=== PATIENT | female | born 1930 | race Caucasian/White ===

== ENCOUNTER 2016-10-20 09:42 | Outpatient (CLI) | payer MEDICARE, OTHER ==
[2016-10-20 10:21] LABS: ALT (SGPT) 23 U/L (0-55); AST (SGOT) 28 U/L (5-34); Albumin 4.1 g/dL (3.4-4.8); Alkaline Phosphatase 58 U/L (40-150); Anion Gap 19 mmol/L (10-20); BUN (Urea Nitrogen) 42 mg/dL (9.8-20.1); Bilirubin, Total 0.8 mg/dL (0.2-1.2); Calc. Creatinine Clearance 0 mL/min (70-130); Calcium 8.8 mg/dL (7.8-10.44); Carbon Dioxide 20 mmol/L (23-31); Cardiac Risk 2.3 (Less than 4.5); Chloride 108 mmol/L (98-107); Cholesterol 108 mg/dL (< 200 Desired); Estimated GFR-MDRD 19; Globulin 2.9 g/dL (2.4-3.5); Glucose 105 mg/dL (83-110); HDL Cholesterol 47 mg/dL (>60 Neg Risk); LDL Cholesterol, Calculated 48 mg/dL; Sodium 143 mmol/L (136-145); Triglycerides 65 mg/dL (Less than 150)
== END 2016-10-20 09:43 | disposition home or self-care (01) ==
LOC: MADLAB 09:42
PROVIDERS: ATTEND Internal Medicine Cardiovascular Disease
DX: E78.00 Pure hypercholesterolemia, unspecified (principal)
CPT/HCPCS: 36415; 80053; 80061

== ENCOUNTER 2016-12-16 10:40 | Outpatient (CLI) | payer MEDICARE, OTHER ==
[2016-12-16 11:09] LABS: #Basophils 0.1 thou/uL (0.0-0.2); #Eosinphils 0.2 thou/uL (0.0-0.7); #Monocytes 0.9 thou/uL (0.11-0.59); #Neutrophils 3.5 thou/uL (1.40-6.50); %Basophils 1.2 % (0.0-1.0); %Eosinophils 3.2 % (0.0-10.0); %Lymphocytes 29.7 % (21.0-51.0); %Monocytes 13.1 % (0.0-10.0); %Neutrophils 52.8 % (42.0-75.0); Mean Corpuscular HGB CONC 33.5 g/dL (32.0-36.0); Mean Corpuscular Hemoglobin 31.9 pg (27.0-31.0); Mean Corpuscular Volume 95.3 fl (81.0-99.0); Mean Platelet Volume 11.1 fL (7.4-10.4); Platelet Count 142 thou/uL (130-400); RBC Distribution Width 12.6 % (11.5-14.5); Red Blood Cell (RBC) Count 3.15 mill/uL (4.20-5.40); White Blood Cell (WBC) Count 6.6 thou/uL (4.8-10.8)
[2016-12-16 11:53] LABS: ALT (SGPT) 17 U/L (0-55); AST (SGOT) 23 U/L (5-34); Alkaline Phosphatase 56 U/L (40-150); Anion Gap 16 mmol/L (10-20); BUN (Urea Nitrogen) 41 mg/dL (9.8-20.1); Bilirubin, Direct 0.4 mg/dL (0.1-0.3); Bilirubin, Total 0.9 mg/dL (0.2-1.2); Calc. Creatinine Clearance 0 mL/min (70-130); Calcium 9.1 mg/dL (7.8-10.44); Carbon Dioxide 23 mmol/L (23-31); Cardiac Risk 2.6 (Less than 4.5); Chloride 107 mmol/L (98-107); Cholesterol 103 mg/dL (< 200 Desired); Estimated GFR-MDRD 20; Glucose 98 mg/dL (83-110); HDL Cholesterol 40 mg/dL (>60 Neg Risk); LDL Cholesterol, Calculated 47 mg/dL; Potassium 3.9 mmol/L (3.5-5.1); Protein, Total 6.9 g/dL (5.8-8.1); Sodium 142 mmol/L (136-145); Triglycerides 81 mg/dL (Less than 150)
== END 2016-12-16 10:41 | disposition home or self-care (01) ==
LOC: MADLAB 10:40
PROVIDERS: ATTEND Family Medicine
DX: N18.4 Chronic kidney disease, stage 4 (severe) (principal); D63.1 Anemia in chronic kidney disease
CPT/HCPCS: 36415; 80048; 80061; 80076; 85025

== ENCOUNTER 2017-01-06 09:25 | Outpatient (CLI) | payer MEDICARE, OTHER ==
[2017-01-06 10:14] LABS: Anion Gap 17 mmol/L (10-20); BUN (Urea Nitrogen) 42 mg/dL (9.8-20.1); Calc. Creatinine Clearance 0 mL/min (70-130); Calcium 9.1 mg/dL (7.8-10.44); Carbon Dioxide 21 mmol/L (23-31); Chloride 107 mmol/L (98-107); Estimated GFR-MDRD 18; Glucose 106 mg/dL (83-110); Potassium 4.2 mmol/L (3.5-5.1); Sodium 141 mmol/L (136-145)
== END 2017-01-06 09:26 | disposition home or self-care (01) ==
LOC: MADLAB 09:25
PROVIDERS: ATTEND Internal Medicine Nephrology
DX: N18.4 Chronic kidney disease, stage 4 (severe) (principal)
CPT/HCPCS: 36415; 80048

== ENCOUNTER 2017-01-14 10:17 | Outpatient (CLI) | payer MEDICARE, OTHER ==
[2017-01-14 10:51] LABS: Anion Gap 17 mmol/L (10-20); BUN (Urea Nitrogen) 50 mg/dL (9.8-20.1); Calc. Creatinine Clearance 0 mL/min (70-130); Calcium 8.8 mg/dL (7.8-10.44); Carbon Dioxide 19 mmol/L (23-31); Chloride 111 mmol/L (98-107); Estimated GFR-MDRD 19; Glucose 99 mg/dL (83-110); Potassium 4.4 mmol/L (3.5-5.1); Sodium 143 mmol/L (136-145)
== END 2017-01-14 10:18 | disposition home or self-care (01) ==
LOC: MADLAB 10:17
PROVIDERS: ATTEND Internal Medicine Nephrology
DX: N18.4 Chronic kidney disease, stage 4 (severe) (principal)
CPT/HCPCS: 36415; 80048

== ENCOUNTER 2017-03-05 13:02 | Outpatient (CLI) | payer MEDICARE, OTHER ==
[2017-03-05 13:55] LABS: Anion Gap 17 mmol/L (10-20); BUN (Urea Nitrogen) 48 mg/dL (9.8-20.1); Calc. Creatinine Clearance 0 mL/min (70-130); Calcium 9.2 mg/dL (7.8-10.44); Carbon Dioxide 21 mmol/L (23-31); Chloride 105 mmol/L (98-107); Estimated GFR-MDRD 18; Glucose 110 mg/dL (83-110); Potassium 4.2 mmol/L (3.5-5.1); Sodium 139 mmol/L (136-145)
== END 2017-03-05 13:03 | disposition home or self-care (01) ==
LOC: MADLAB 13:02
PROVIDERS: ATTEND Internal Medicine Nephrology
DX: N18.3 Chronic kidney disease, stage 3 (moderate) (principal)
CPT/HCPCS: 36415; 80048

== ENCOUNTER 2017-03-19 10:17 | Outpatient (CLI) | payer MEDICARE, OTHER ==
[2017-03-19 10:56] LABS: #Eosinphils 0.2 thou/uL (0.0-0.7); #Lymphocytes 1.8 thou/uL (1.20-3.40); #Monocytes 0.8 thou/uL (0.11-0.59); #Neutrophils 3.1 thou/uL (1.40-6.50); %Basophils 0.8 % (0.0-1.0); %Eosinophils 2.6 % (0.0-10.0); %Lymphocytes 30.2 % (21.0-51.0); %Monocytes 13.3 % (0.0-10.0); %Neutrophils 53.1 % (42.0-75.0); Hemoglobin 10.1 g/dL (12.0-16.0); Mean Corpuscular HGB CONC 33.6 g/dL (32.0-36.0); Mean Corpuscular Hemoglobin 31.9 pg (27.0-31.0); Mean Corpuscular Volume 94.8 fl (81.0-99.0); Mean Platelet Volume 11.8 fL (7.4-10.4); Platelet Count 145 thou/uL (130-400); Red Blood Cell (RBC) Count 3.18 mill/uL (4.20-5.40); White Blood Cell (WBC) Count 5.9 thou/uL (4.8-10.8)
[2017-03-19 11:35] LABS: ALT (SGPT) 17 U/L (8-55); AST (SGOT) 21 U/L (5-34); Albumin 3.8 g/dL (3.4-4.8); Alkaline Phosphatase 58 U/L (40-150); Anion Gap 15 mmol/L (10-20); BUN (Urea Nitrogen) 42 mg/dL (9.8-20.1); Bilirubin, Direct 0.4 mg/dL (0.1-0.3); Calc. Creatinine Clearance 0 mL/min (70-130); Calcium 8.5 mg/dL (7.8-10.44); Carbon Dioxide 21 mmol/L (23-31); Cardiac Risk 2.4 (Less than 4.5); Chloride 109 mmol/L (98-107); Cholesterol 101 mg/dl (< 200 Desired); Estimated GFR-MDRD 20; Glucose 99 mg/dL (83-110); HDL Cholesterol 42 mg/dL (>60 Neg Risk); LDL Cholesterol, Calculated 45 mg/dL; Potassium 4.2 mmol/L (3.5-5.1); Protein, Total 7.2 g/dL (6.0-8.3); Sodium 141 mmol/L (136-145); Triglycerides 71 mg/dL (Less than 150)
== END 2017-03-19 10:18 | disposition home or self-care (01) ==
LOC: MADLABBHPM 10:17
PROVIDERS: ATTEND Family Medicine
DX: N18.4 Chronic kidney disease, stage 4 (severe) (principal); I43 Cardiomyopathy in diseases classified elsewhere
CPT/HCPCS: 36415; 80048; 80061; 80076; 85025

== ENCOUNTER 2017-04-21 10:02 | Outpatient (CLI) | payer MEDICARE, OTHER ==
[2017-04-21 10:38] LABS: ALT (SGPT) 20 U/L (8-55); AST (SGOT) 21 U/L (5-34); Albumin 3.7 g/dL (3.4-4.8); Alkaline Phosphatase 60 U/L (40-150); Anion Gap 16 mmol/L (10-20); BUN (Urea Nitrogen) 41 mg/dL (9.8-20.1); Bilirubin, Total 1.1 mg/dL (0.2-1.2); Calc. Creatinine Clearance 0 mL/min (70-130); Calcium 8.6 mg/dL (7.8-10.44); Carbon Dioxide 22 mmol/L (23-31); Cardiac Risk 2.5 (Less than 4.5); Chloride 106 mmol/L (98-107); Cholesterol 104 mg/dl (< 200 Desired); Estimated GFR-MDRD 18; Globulin 3.3 g/dL (2.4-3.5); Glucose 127 mg/dL (83-110); HDL Cholesterol 42 mg/dL (>60 Neg Risk); LDL Cholesterol, Calculated 48 mg/dL; Potassium 3.8 mmol/L (3.5-5.1); Sodium 140 mmol/L (136-145); Triglycerides 68 mg/dL (Less than 150)
== END 2017-04-21 10:03 | disposition home or self-care (01) ==
LOC: MADLAB 10:02
PROVIDERS: ATTEND Internal Medicine Cardiovascular Disease
DX: E78.00 Pure hypercholesterolemia, unspecified (principal)
CPT/HCPCS: 36415; 80053; 80061

== ENCOUNTER 2017-06-22 11:05 | Outpatient (CLI) | payer MEDICARE, OTHER, BC ==
[2017-06-22 11:50] LABS: #Basophils 0.1 thou/uL (0.0-0.2); #Eosinphils 0.1 thou/uL (0.0-0.7); #Lymphocytes 1.9 thou/uL (1.20-3.40); #Monocytes 0.8 thou/uL (0.11-0.59); #Neutrophils 4.2 thou/uL (1.40-6.50); %Basophils 1.1 % (0.0-1.0); %Eosinophils 1.8 % (0.0-10.0); %Lymphocytes 26.5 % (21.0-51.0); %Monocytes 11.7 % (0.0-10.0); %Neutrophils 58.8 % (42.0-75.0); Hemoglobin 10.8 g/dL (12.0-16.0); Mean Corpuscular HGB CONC 32.7 g/dL (32.0-36.0); Mean Corpuscular Volume 94.9 fl (81.0-99.0); Mean Platelet Volume 11.5 fL (7.4-10.4); Platelet Count 144 thou/uL (130-400); Red Blood Cell (RBC) Count 3.47 mill/uL (4.20-5.40); White Blood Cell (WBC) Count 7.1 thou/uL (4.8-10.8)
[2017-06-22 12:33] LABS: ALT (SGPT) 18 U/L (8-55); AST (SGOT) 22 U/L (5-34); Alkaline Phosphatase 72 U/L (40-150); Anion Gap 15 mmol/L (10-20); BUN (Urea Nitrogen) 37 mg/dL (9.8-20.1); Bilirubin, Direct 0.5 mg/dL (0.1-0.3); Bilirubin, Total 1.1 mg/dL (0.2-1.2); Calc. Creatinine Clearance 0 mL/min (70-130); Calcium 8.9 mg/dL (7.8-10.44); Carbon Dioxide 22 mmol/L (23-31); Cardiac Risk 2.5 (Less than 4.5); Chloride 109 mmol/L (98-107); Cholesterol 104 mg/dl (< 200 Desired); Estimated GFR-MDRD 19; Glucose 99 mg/dL (83-110); HDL Cholesterol 41 mg/dL (>60 Neg Risk); LDL Cholesterol, Calculated 49 mg/dL; Protein, Total 7.5 g/dL (6.0-8.3); Sodium 142 mmol/L (136-145); Triglycerides 70 mg/dL (Less than 150)
== END 2017-06-22 11:06 | disposition home or self-care (01) ==
LOC: MADLABBHPM 11:05
PROVIDERS: ATTEND Family Medicine
DX: N18.4 Chronic kidney disease, stage 4 (severe) (principal); D63.1 Anemia in chronic kidney disease
CPT/HCPCS: 36415; 80048; 80061; 80076; 85025

== ENCOUNTER 2017-12-08 19:31 | Emergency (ER) | payer MEDICARE, OTHER, BC ==
--- NOTE | 2017-12-08 21:13 | RAD ---
RIGHT KNEE FOUR VIEW 12/08/17 HISTORY: Pain after fall. COMPARISON: None. FINDINGS: Mild vascular calcifications. No significant joint effusion. Mild pretibial soft tissue edema. IMPRESSION: Soft tissue contusion. No acute fracture or malalignment. POS: [facility]
--- NOTE | 2017-12-08 21:15 | RAD ---
RIGHT ANKLE THREE VIEW 12/08/17 HISTORY: Fall, lateral malleolar pain. COMPARISON: None. FINDINGS: Mild vascular calcifications. Small plantar and dorsal calcaneal spurs. No displaced fracture or malalignment of the ankle. There appears to be an old injury of the lateral malleolus. IMPRESSION: Cortical irregularity fifth metatarsal neck may reflect fracture. POS: [facility]
--- NOTE | 2017-12-08 21:21 | RAD ---
RIGHT RIBS GREATER THAN OR EQUAL 2 VIEW WITH PA CHEST X-RAY 12/08/17 HISTORY: Pain after a fall. COMPARISON: None. FINDINGS: An AICD/pacer is present. The aorta is mildly tortuous. Linear atelectasis left lung base. No displaced rib fracture. IMPRESSION: No displaced rib fracture. POS: [facility]
--- NOTE | 2017-12-08 21:26 | RAD ---
RIGHT FOOT THREE VIEW 12/08/17 HISTORY: Fourth metatarsal pain. COMPARISON: None. FINDINGS: Moderate sized plantar and dorsal calcaneal spurs. There is a fifth metatarsal neck fracture. IMPRESSION: Fifth metatarsal neck fracture without significant displacement. POS: [facility]
== END 2017-12-08 21:45 | disposition home or self-care (01) ==
LOC: MADERS 19:31
DX: S92.354A Nondisplaced fracture of fifth metatarsal bone, right foot, initial encounter for closed fracture (principal); S20.211A Contusion of right front wall of thorax, initial encounter; S80.01XA Contusion of right knee, initial encounter; E78.5 Hyperlipidemia, unspecified; I10 Essential (primary) hypertension; Z87.891 Personal history of nicotine dependence; W18.30XA Fall on same level, unspecified, initial encounter

== ENCOUNTER 2018-04-08 09:23 | Outpatient (CLI) | payer MEDICARE, BC, OTHER ==
[2018-04-08 09:59] LABS: ALT (SGPT) 9 U/L (8-55); AST (SGOT) 17 U/L (5-34); Alkaline Phosphatase 72 U/L (40-150); Anion Gap 16 mmol/L (10-20); BUN (Urea Nitrogen) 48 mg/dL (9.8-20.1); Calc. Creatinine Clearance 0 mL/min (70-130); Calcium 8.6 mg/dL (7.8-10.44); Carbon Dioxide 18 mmol/L (23-31); Cardiac Risk 2.5 (Less than 4.5); Chloride 113 mmol/L (98-107); Cholesterol 114 mg/dl (< 200 Desired); Estimated GFR-MDRD 22; Globulin 3.2 g/dL (2.4-3.5); Glucose 101 mg/dL (83-110); HDL Cholesterol 46 mg/dL (>60 Neg Risk); LDL Cholesterol, Calculated 58 mg/dL; Potassium 4.2 mmol/L (3.5-5.1); Protein, Total 7.2 g/dL (6.0-8.3); Sodium 143 mmol/L (136-145); Triglycerides 50 mg/dL (Less than 150)
== END 2018-04-08 09:24 | disposition home or self-care (01) ==
LOC: MADLAB 09:23
PROVIDERS: ATTEND Internal Medicine Cardiovascular Disease
DX: E78.00 Pure hypercholesterolemia, unspecified (principal)
CPT/HCPCS: 36415; 80053; 80061

== ENCOUNTER 2018-06-20 15:58 | Inpatient (IN) | payer MEDICARE, BC, OTHER ==
[2018-06-20] MEDS ORDERED: Acetaminophen 325 MG TAB PO PRN (18:34)
[2018-06-20] MEDS: HYDROcodone/Acetaminophen 5/325 mg Tablet PO PRN (19:22)
[2018-06-20] MEDS: Cipro 250 MG TAB PO SCH (20:50)
[2018-06-20 22:32] LABS: Bilirubin Negative (Negative); Blood, Urine Trace (Negative); Glucose, Urine (Dipstick) Negative (Negative); Leukocyte Small (Negative); Nitrite Negative (Negative); Protein, Urine (Dipstick) 30 mg/dL (Neg-Trace); Urobilinogen 0.2 mg/dL (0.2-1.0); pH, Urine 5.5 (5.0-9.0)
[2018-06-20 22:35] LABS: Clarity Hazy (Clear)
[2018-06-20 22:41] LABS: Bacteria/HPF Rare-Few HPF (None Seen); Squamous Epithelial 0-3 HPF (0-3)
--- NOTE | 2018-06-21 00:16 | HP ---
DATE OF ADMISSION: Admitted to [facility] to extended care on the afternoon of 06/20/2018. CHIEF COMPLAINT: Weakness. HISTORY OF PRESENT ILLNESS: The patient is an 87-year-old white female who lives at home and with he r , has a caregiver who helps her with her ADLs. The patient has a history of hypertension an d coronary artery disease, for which she has had stents placed in the LAD in 12/29/2013. She was lef t with an ischemic cardiomyopathy with an ejection fraction of 25% to 30%. The patient also has a hi story of a previous fracture of the left hip, for which she underwent total left hip replacement and was seen in [place] where the fracture occurred while visiting. There has been loosening that has o ccurred, creating chronic pain. She underwent a preop evaluation by her clicker operator, Dr. Keven juan nd was found to have severe mid to distal anteroseptal and proximal to the distal septal ischemia on cardiac PET scan. She underwent a heart catheterization on 05/08/2018, and was found to have a 70% l esion between the two original stents that were placed in [place] 3 years ago. She had a bare metal stent placed in this area with excellent results. The bare metal was used that would allow her to s top the Plavix, so she can undergo her hip surgery. She was given okay to follow through with her santacruz rgery for the revision of the left hip on 06/16/2018. The patient was admitted for the failed hemiar throplasty with cement of the left hip and underwent removal of the hardware and conversion to a tota l hip arthroplasty. She had a postop anemia and required transfusion with 1 unit of blood. She also had urinary tract infection with Enterobacter cloacae sensitive to the ceftriaxone that she was plac ed on postop. She had difficulty with urinary retention and required placement of a Wisdom catheter t hat was difficult and required placement by the urologist. She has previously had trouble with urina ry retention in 05/2018 when she was admitted for heart catheterization and catheter was not able to be placed successfully after multiple attempts. Dr. Femi Styles, urologist placed this easily and the blood was felt to be from the multiple attempts that is cleared. The patient said that she was transferred to [facility] on the afternoon of 06/20/2018 due to her weakness and deconditioning following the left hip arthroplasty. The patient was seen soon after admission and said that she has been doing fine, just weak. She said that she has been up in a chair and has been able to get up and walk a little, but not today because she was just worn out from the urinary retention, multiple attempts to place the catheter last eveni ng eventually was successfully done. She said her pain is from the postop pain and has been managed with her hydrocodone/acetaminophen. Her pain is much different than the pain from the failed arthrop lasty is much more tolerable. The patient thinks she is doing very well. PAST HISTORY: Hospitalized at [facility] until 06/20/2018, for failed hemiarthroplasty, c emented type, requiring removal of hardware and conversion to a previous hip surgery to a total hip a rthroplasty by Dr. Kushal Funes. Hospital course complicated by blood loss anemia requiring transfus ion with 1 unit of blood at urinary tract infection from Enterobacter cloacae hospitalized in [facility] on 05/09/2018 for placement of a bare metal stent in the LAD between 2 previous stents that were placed three years previous with excellent results. Bare metal stent allowed her to stop the Plavix for her intended hip surgery. Her ejection fraction was 25% to 30% as results of ischemic cardiomyop athy. She has a history of ventricular tachycardia and has dual-chamber implantable cardioverter def ibrillator. She has hypertension and chronic kidney disease, hypercholesterolemia, mild mitral regur gitation, mild aortic insufficiency, and idiopathic urticaria. The patient had a myocardial infarcti on complicated by cardiac arrest from v-tach in 12/2013. She underwent a stent placement in the LAD x2 and also an ICD placement. She underwent a bare metal stent in the LAD restenosis between the pre vious stents on 05/09/2018. The patient has history of anemia of chronic illness, chronic kidney dis ease stage 4, followed by Dr. Murphy, glove maker, polyneuropathy, generalized osteoarthritis, morbid obesity, cancer of the left breast for which she has undergone left breast lumpectomy, sentinel node biopsy, well differentiated ductal carcinoma. She has had appendectomy, tonsillectomy, colonoscopy i n 2007 with removal of sessile polyp and she had been treated in the past for congestive heart failur e in 2013. 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 PRESENT MEDICINES: Aspirin 81 mg b.i.d., atorvastatin 80 mg daily, vitamin D3 of 500 units daily, ca lcium carbonate 600 mg daily, carvedilol 12.5 mg b.i.d., Zetia 10 mg b.i.d., Cipro 250 mg b.i.d., fur osemide 40 mg on Wednesday, Wednesday, , Wednesday, furosemide 20 mg on , isosorbide mononitrate 30 mg daily, CoQ10 of 400 mg daily, hydrocodone/acetaminophen 5/325 one or two every 4 hours as need ed for mild to moderate pain, ferrous gluconate 324 mg b.i.d. ALLERGIES: HYDRALAZINE causes headache. LISINOPRIL, decline in renal function. TOPROL-XL, syncope and bradycardia. FOSAMAX, hives. Historically, she had some trouble with hydrocodone causing urtica lena but has since been taking this without problems. REVIEW OF SYSTEMS: General: The patient has had no chills or fever. Head and Neck: No complaints. Pulmonary: No shortness of breath. Cardiovascular: No chest pain. Gastrointestinal: The patien t had a little nausea early this morning, but that has resolved and she has been eating her supper to day. Genitourinary: The patient has an indwelling Wisdom catheter due to urinary retention postop. Musculoskeletal. The patient has pain in her left hip from the surgery, the pain from the failed art hroplasty of the left hip is much better since the surgery on 06/16. HABITS: Alcohol none. Tobacco, the patient is a smoker, less than a pack a day. SOCIAL HISTORY: The patient is and lives with her . She has a lady that comes in and helps her some with her ADLs. She usually ambulates with the use of a walker. PHYSICAL EXAMINATION: GENERAL: Shows a very pleasant 87-year-old white female who is sitting up in bed, eating her supper. She looks very comfortable and in no distress. VITAL SIGNS: Her temperature is 97.9, pulse 68, respirations 22, O2 sat 97% on room air, blood press ure 104/60. Her weight is 166. HEAD: Normocephalic. EYES: Pupils were equal, round, and reactive. The patient had bilateral cataract surgery with intra ocular lens implants. EARS: TMs are clear. NOSE: Normal. MOUTH AND THROAT: Normal. NECK: Carotids were equal and strong. No bruits. Thyroid not enlarged. LUNGS: Clear. HEART: Regular rate. No murmurs. ABDOMEN: Soft, no organomegaly nor areas of tenderness. MUSCULOSKELETAL: Left hip, there was a long incision along the lateral side of the hip. There was n o overlying dressing. The wound was examined. The skin edges were well approximated with subcuticul ar stitches. There was no drainage nor surrounding redness. Distal lower extremities, no edema. NEUROLOGIC: The patient is alert and oriented x3, has excellent strength in the upper extremities, n ot moving the left leg as much due to the pain from the recent surgery. IMPRESSION: 1. Generalized weakness and deconditioning and gait abnormality. A. Secondary to a failed hemiarthroplasty of the left hip requiring removal of hardware and conversi on to a total hip arthroplasty on 06/16/2018. 2. 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 A. Status post removal of hardware and conversion to a total hip arthroplasty by Dr. Kushal Funes on 06/16/2018. 3. Urinary tract infection. A. Urine culture grew Enterobacter cloacae colony count greater than 100,000 in 06/16/2018. B. Treated initially with IV ceftriaxone, which the organism was sensitive to and then switched to o ral Cipro, which the organism is sensitive to. 4. Anemia of chronic illness. A. Exacerbated by blood loss from recent surgery, requiring transfusion with 1 unit of packed red bl ood cells. 5. Urinary retention. A. Required placement of Wisdom catheter on 06/19/2018. 6. History of inability to place Wisdom catheter on 05/07/2018, requiring urologist, Dr. Styles to p lace the catheter. Complicated by hematuria, which is resolved. 7. Coronary artery disease. A. History of myocardial infarction complicated by cardiac arrest from ventricular tachycardia and p ulmonary edema, requiring placement of stents in the left anterior descending and Implantable cardiov erter defibrillator placement. B. In-stent restenosis in the left anterior descending, required bare metal stent placement by Dr. Arnaldo Baca, clicker operator on 05/09/2018. 8. Ischemic cardiomyopathy. A. Echocardiogram shows ejection fraction of 25% to 30%. 9. History of ventricular tachycardia. A. Status post dual-chamber implantable cardioverter defibrillator in 2013. 10. Chronic kidney disease, stage 4. 11. Hypertension. 12. Cigarette abuse. 13. 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 A. Status post lumpectomy in 2006, no evidence of recurrence. 14. Generalized osteoarthritis. 15. Neuropathy of the lower extremities. PLAN: The patient has been admitted to the hospital for physical therapy in an effort to improve her strength, her endurance, her gait, and functional capability with the eventual plans to return to he r home. Once she is more mobile, we will try removing the Wisdom catheter. We will continue her pres ent medication. We will continue the Cipro for another [address] the patient on DVT pro phylaxis with Lovenox. CODE STATUS: FULL CODE.
[2018-06-21 05:29] LABS: #Basophils 0.1 thou/uL (0.0-0.2); #Eosinphils 0.4 thou/uL (0.0-0.7); #Lymphocytes 1.4 thou/uL (1.20-3.40); #Monocytes 0.7 thou/uL (0.11-0.59); #Neutrophils 3.8 thou/uL (1.40-6.50); %Basophils 1.2 % (0.0-1.0); %Eosinophils 6.7 % (0.0-10.0); %Lymphocytes 21.5 % (21.0-51.0); %Monocytes 11.2 % (0.0-10.0); %Neutrophils 59.5 % (42.0-75.0); Hemoglobin 8.2 g/dL (12.0-16.0); Mean Corpuscular HGB CONC 35.7 g/dL (32.0-36.0); Mean Corpuscular Volume 92.4 fL (78.0-98.0); Mean Platelet Volume 11.3 fL (7.4-10.4); Platelet Count 138 thou/uL (130-400); RBC Distribution Width 12.5 % (11.5-14.5); Red Blood Cell (RBC) Count 2.49 mill/uL (4.20-5.40); White Blood Cell (WBC) Count 6.4 thou/uL (4.8-10.8)
[2018-06-21 05:46] LABS: ALT (SGPT) 12 U/L (8-55); AST (SGOT) 41 U/L (5-34); Albumin 2.9 g/dL (3.4-4.8); Alkaline Phosphatase 52 U/L (40-150); Anion Gap 12 mmol/L (10-20); BUN (Urea Nitrogen) 34 mg/dL (9.8-20.1); Bilirubin, Total 0.6 mg/dL (0.2-1.2); Calc. Creatinine Clearance 21 mL/min (70-130); Calcium 8.8 mg/dL (7.8-10.44); Carbon Dioxide 25 mmol/L (23-31); Chloride 103 mmol/L (98-107); Estimated GFR-MDRD 21; Globulin 2.9 g/dL (2.4-3.5); Glucose 99 mg/dL (83-110); Potassium 3.8 mmol/L (3.5-5.1); Protein, Total 5.8 g/dL (6.0-8.3); Sodium 136 mmol/L (136-145)
[2018-06-21] MEDS: Ondansetron ODT 4 MG TAB PO PRN (06:07)
[2018-06-21] MEDS: Cipro 250 MG TAB PO SCH ×2 (07:49→20:18)
[2018-06-21] MEDS: Carvedilol 12.5 MG TAB PO SCH ×2 (07:49→16:41)
[2018-06-21] MEDS: Calcium Carbonate 500 MG TAB PO SCH (07:51)
[2018-06-21] MEDS: Polyethylene Glycol 3350 17 GM Packet PO SCH (07:52)
[2018-06-21] MEDS: Furosemide 40 MG TAB PO SCH (07:52)
[2018-06-21] MEDS: Enoxaparin Sodium 40 MG/0.4 ML SYRINGE SC SCH (07:52)
[2018-06-21] MEDS: Ubidecarenone 50 MG CAP PO SCH (07:53)
[2018-06-21] MEDS ORDERED: Atorvastatin Calcium 10 MG TAB PO SCH (09:00)
[2018-06-21] MEDS ORDERED: Ezetimibe 10 MG TAB PO SCH (09:00)
[2018-06-21] MEDS: HYDROcodone/Acetaminophen 5/325 mg Tablet PO PRN ×2 (13:20→21:11)
[2018-06-21] MEDS: Atorvastatin Calcium 10 MG TAB PO SCH (20:16)
[2018-06-21] MEDS: Ezetimibe 10 MG TAB PO SCH (20:17)
[2018-06-22] MEDS: Cipro 250 MG TAB PO SCH ×2 (05:05→20:23)
[2018-06-22] MEDS: HYDROcodone/Acetaminophen 5/325 mg Tablet PO PRN ×3 (05:07→20:24)
--- NOTE | 2018-06-22 08:34 | PRG ---
DATE OF SERVICE: 06/22/2018 SUBJECTIVE: The patient said she is doing a lot better today. Yesterday she sat up quite a bit and also walked quite a bit. She is feeling better. Her hip is feeling better. Still has pain, but sahu s not have the pain with walking that she had prior to her surgery. OBJECTIVE: The patient is alert, looks very comfortable, very talkative, and in no distress. Temp 9 7.4, pulse 68, respirations 18, O2 saturation 98% on room air, blood pressure 101/53. Lungs are jacki r. Heart, regular rate. Extremities; no edema. ASSESSMENT: 1. Generalized weakness and deconditioning and gait abnormality. A. Secondary to a failed hemiarthroplasty of the left hip requiring removal of hardware and conversi on to a total hip arthroplasty on 06/16/2018. B. Improved, sitting up in a chair and walking some as of 06/22/2018. 2. 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 A. Status post removal of hardware and conversion to a total hip arthroplasty by Dr. Kushal Funes on 06/16/2018. 3. Urinary tract infection. A. Urine culture grew Enterobacter cloacae colony count greater than 100,000 in 06/16/2018. B. Treated initially with IV ceftriaxone, which the organism was sensitive to and then switched to o ral Cipro, which the organism is sensitive to. C. Asymptomatic, completing a 7-day course of Cipro as of 06/22/2018. 4. Anemia of chronic illness. A. Exacerbated by blood loss from recent surgery, requiring transfusion with 1 unit of packed red bl ood cells. 5. Urinary retention. A. Required placement of Wisdom catheter on 06/19/2018. 6. History of inability to place Wisdom catheter on 05/07/2018, requiring urologist, Dr. Styles to p lace the catheter. Complicated by hematuria, which is resolved. 7. Coronary artery disease. A. History of myocardial infarction complicated by cardiac arrest from ventricular tachycardia and p ulmonary edema, requiring placement of stents in the left anterior descending and Implantable cardiov erter defibrillator placement. B. In-stent restenosis in the left anterior descending, required bare metal stent placement by Dr. Arnaldo Baca, school aide on 05/09/2018. 8. Ischemic cardiomyopathy. A. Echocardiogram shows ejection fraction of 25% to 30%. B. No evidence of acute congestive heart failure as of 06/22/2018. 9. History of ventricular tachycardia. A. Status post dual-chamber implantable cardioverter defibrillator in 2013. 10. Chronic kidney disease, stage 4. 11. Hypertension. 12. Cigarette abuse. 13. 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 A. Status post lumpectomy in 2006, no evidence of recurrence. 14. Generalized osteoarthritis. 15. Neuropathy of the lower extremities. PLAN: The patient is improving. She looks much better, she is having no nausea. If she continues t o do well, we will probably be able to remove her Wisdom catheter soon. Continue PT and OT.
[2018-06-22] MEDS: Enoxaparin Sodium 40 MG/0.4 ML SYRINGE SC SCH (08:36)
[2018-06-22] MEDS: Carvedilol 12.5 MG TAB PO SCH ×2 (08:36→17:35)
[2018-06-22] MEDS: Polyethylene Glycol 3350 17 GM Packet PO SCH (08:36)
--- NOTE | 2018-06-22 08:36 | PRG ---
DATE OF SERVICE: 06/21/2018 SUBJECTIVE: The patient said she is doing alright. She said her bowels moved several times last nig ht. She also was a little nauseated this morning, was given Zofran oral disintegrating tablet and th is worked real well. OBJECTIVE: The patient is lying in bed with the head elevated. She was alert, talkative, looks comf ortable and in no distress. Her vital signs show a temperature of 98.5, pulse 62, respirations 18, O 2 sat 96% on room air. Her blood pressure is 131/60. Lungs were clear. Heart, regular rate. Extre mities; no edema. Her labs shows an H&H of 8.2 and 23. White cell count 6400 with 60% segs, 22% lymphocytes, and a soto telet count of 138,000. Her sodium is 136, potassium 3.8, BUN 34, creatinine 2.2, GFR 21, which is s table. Her FBS is 99. Albumin is 2.9. ASSESSMENT: 1. Generalized weakness and deconditioning and gait abnormality. A. Secondary to a failed hemiarthroplasty of the left hip requiring removal of hardware and conversi on to a total hip arthroplasty on 06/16/2018. B. Physical therapy and OT will begin working with her today 06/21/2018. 2. 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 A. Status post removal of hardware and conversion to a total hip arthroplasty by Dr. Kushal Funes on 06/16/2018. 3. Urinary tract infection. A. Urine culture grew Enterobacter cloacae colony count greater than 100,000 in 06/16/2018. B. Treated initially with IV ceftriaxone, which the organism was sensitive to and then switched to o ral Cipro, which the organism is sensitive to. 4. Anemia of chronic illness. A. Exacerbated by blood loss from recent surgery, requiring transfusion with 1 unit of packed red bl ood cells. B. Hemoglobin 8.2 as of 06/21/2018. 5. Urinary retention. A. Required placement of Wisdom catheter on 06/19/2018. 6. History of inability to place Wisdom catheter on 05/07/2018, requiring urologist, Dr. Styles to p lace the catheter. Complicated by hematuria, which is resolved. 7. Coronary artery disease. A. History of myocardial infarction complicated by cardiac arrest from ventricular tachycardia and p ulmonary edema, requiring placement of stents in the left anterior descending and Implantable cardiov erter defibrillator placement. B. In-stent restenosis in the left anterior descending, required bare metal stent placement by Dr. Arnaldo Baca, home aide on 05/09/2018. 8. Ischemic cardiomyopathy. A. Echocardiogram shows ejection fraction of 25% to 30%. B. No evidence of acute congestive heart failure as of 06/21/2018. 9. History of ventricular tachycardia. A. Status post dual-chamber implantable cardioverter defibrillator in 2013. 10. Chronic kidney disease, stage 4. A. GFR stable at 21 as of 06/21/2018. 11. Hypertension. 12. Cigarette abuse. 13. 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 A. Status post lumpectomy in 2006, no evidence of recurrence. 14. Generalized osteoarthritis. 15. Neuropathy of the lower extremities. PLAN: Physical therapy will begin working with the patient today. Her MiraLax will be switched if n jeanie.
[2018-06-22] MEDS: Calcium Carbonate 500 MG TAB PO SCH (08:37)
[2018-06-22] MEDS: Ubidecarenone 50 MG CAP PO SCH (08:37)
[2018-06-22] MEDS: Furosemide 20 MG TAB PO SCH (08:37)
[2018-06-22] MEDS: Atorvastatin Calcium 10 MG TAB PO SCH (20:23)
[2018-06-22] MEDS: Ezetimibe 10 MG TAB PO SCH (20:24)
[2018-06-23] MEDS: Cipro 250 MG TAB PO SCH ×2 (05:21→19:59)
[2018-06-23] MEDS: HYDROcodone/Acetaminophen 5/325 mg Tablet PO PRN ×3 (05:21→19:57)
[2018-06-23] MEDS: Ubidecarenone 50 MG CAP PO SCH (08:21)
[2018-06-23] MEDS: Calcium Carbonate 500 MG TAB PO SCH (08:22)
[2018-06-23] MEDS: Furosemide 40 MG TAB PO SCH (08:23)
[2018-06-23] MEDS: Polyethylene Glycol 3350 17 GM Packet PO SCH (08:23)
[2018-06-23] MEDS: Carvedilol 12.5 MG TAB PO SCH ×2 (08:23→18:04)
[2018-06-23] MEDS: Enoxaparin Sodium 40 MG/0.4 ML SYRINGE SC SCH (08:23)
--- NOTE | 2018-06-23 08:29 | PRG ---
DATE OF SERVICE: 06/23/2018 SUBJECTIVE: The patient said she slept real good last night. She has walked a little further in the hallway with therapy. She said she is having a lot of soreness with movement of that left hip, but felt like this is just post-surgical changes. OBJECTIVE: The patient is alert, appears in no distress. Her vital signs show a temperature of 97.9 , pulse 66, respirations 18, O2 sat 95% on room air, blood pressure 162/79. Her weight is 170 up fro m an admission weight of 164. Her lungs were clear. Heart, regular rate. Extremities, no edema. ASSESSMENT: 1. Generalized weakness and deconditioning and gait abnormality. A. Secondary to a failed hemiarthroplasty of the left hip requiring removal of hardware and conversi on to a total hip arthroplasty on 06/16/2018. B. Improved. Tolerates sitting up in a chair without problem. Walking further with a rolling walker and assistance as of 06/23/2018. 2. 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 A. Status post removal of hardware and conversion to a total hip arthroplasty by Dr. Kushal Funes on 06/16/2018. 3. Urinary tract infection. A. Urine culture grew Enterobacter cloacae colony count greater than 100,000 in 06/16/2018. B. Treated initially with IV ceftriaxone, which the organism was sensitive to and then switched to o ral Cipro, which the organism is sensitive to. C. Asymptomatic, completing a 7-day course of Cipro as of 06/23/2018. 4. Anemia of chronic illness. A. Exacerbated by blood loss from recent surgery, requiring transfusion with 1 unit of packed red bl ood cells. 5. Urinary retention. A. Required placement of Wisdom catheter on 06/19/2018. 6. History of inability to place Wisdom catheter on 05/07/2018, requiring urologist, Dr. Styles to p lace the catheter. Complicated by hematuria, which is resolved. 7. Coronary artery disease. A. History of myocardial infarction complicated by cardiac arrest from ventricular tachycardia and p ulmonary edema, requiring placement of stents in the left anterior descending and Implantable cardiov erter defibrillator placement. B. In-stent restenosis in the left anterior descending, required bare metal stent placement by Dr. Arnaldo Baca, pricing analyst on 05/09/2018. 8. Ischemic cardiomyopathy. A. Echocardiogram shows ejection fraction of 25% to 30%. B. No evidence of acute congestive heart failure as of 06/23/2018. 9. History of ventricular tachycardia. A. Status post dual-chamber implantable cardioverter defibrillator in 2013. 10. Chronic kidney disease, stage 4. 11. Hypertension. 12. Cigarette abuse. 13. 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 A. Status post lumpectomy in 2006, no evidence of recurrence. 14. Generalized osteoarthritis. 15. Neuropathy of the lower extremities. PLAN: The patient is doing well. Continue present care. Continue PT. Will probably remove the cat heter tomorrow which will give her a little bit more time to strengthen prior to removal of the yasmine ter.
[2018-06-23] MEDS: Ondansetron ODT 4 MG TAB PO PRN (09:56)
[2018-06-23] MEDS: Atorvastatin Calcium 10 MG TAB PO SCH (19:59)
[2018-06-23] MEDS: Ezetimibe 10 MG TAB PO SCH (20:00)
[2018-06-24] MEDS: Calcium Carbonate 500 MG TAB PO SCH (08:40)
[2018-06-24] MEDS: Carvedilol 12.5 MG TAB PO SCH ×2 (08:40→17:33)
[2018-06-24] MEDS: Enoxaparin Sodium 40 MG/0.4 ML SYRINGE SC SCH (08:43)
[2018-06-24] MEDS: Furosemide 20 MG TAB PO SCH (08:43)
[2018-06-24] MEDS: Polyethylene Glycol 3350 17 GM Packet PO SCH (08:43)
[2018-06-24] MEDS: Ubidecarenone 50 MG CAP PO SCH (08:44)
[2018-06-24] MEDS: HYDROcodone/Acetaminophen 5/325 mg Tablet PO PRN ×2 (08:51→20:32)
--- NOTE | 2018-06-24 10:35 | PRG ---
DATE OF SERVICE: 06/24/2018 SUBJECTIVE: The patient said she is doing better. Still has soreness in the left hip, but different type of soreness compared to what it was like prior to her surgery. She is walking further and bett er, just sore around the hip from the surgery. OBJECTIVE: The patient is standing up, holding onto her walker, working with physical therapy. She looks very comfortable and in no distress. Her temperature is 97.4, pulse 64, respirations 18, O2 sa t 96%, blood pressure 146/67. Lungs are clear. Heart, regular rate. Extremities, no edema. ASSESSMENT: 1. Generalized weakness and deconditioning and gait abnormality. A. Secondary to a failed hemiarthroplasty of the left hip requiring removal of hardware and conversi on to a total hip arthroplasty on 06/16/2018. B. Improved. Walking further. 2. 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 A. Status post removal of hardware and conversion to a total hip arthroplasty by Dr. Kushal Funes on 06/16/2018. 3. Urinary tract infection. A. Urine culture grew Enterobacter cloacae colony count greater than 100,000 in 06/16/2018. B. Treated initially with IV ceftriaxone, which the organism was sensitive to and then switched to o ral Cipro, which the organism is sensitive to. C. Asymptomatic, completing a 7-day course of Cipro as of 06/23/2018. 4. Anemia of chronic illness. A. Exacerbated by blood loss from recent surgery, requiring transfusion with 1 unit of packed red bl ood cells. 5. Urinary retention. A. Required placement of Wisdom catheter on 06/19/2018. 6. History of inability to place Wisdom catheter on 05/07/2018, requiring urologist, Dr. Styles to p lace the catheter. Complicated by hematuria, which is resolved. 7. Coronary artery disease. A. History of myocardial infarction complicated by cardiac arrest from ventricular tachycardia and p ulmonary edema, requiring placement of stents in the left anterior descending and Implantable cardiov erter defibrillator placement. B. In-stent restenosis in the left anterior descending, required bare metal stent placement by Dr. Arnaldo Baca, vp compliance on 05/09/2018. 8. Ischemic cardiomyopathy. A. Echocardiogram shows ejection fraction of 25% to 30%. B. No evidence of acute congestive heart failure as of 06/24/2018. 9. History of ventricular tachycardia. A. Status post dual-chamber implantable cardioverter defibrillator in 2013. 10. Chronic kidney disease, stage 4. 11. Hypertension. 12. Cigarette abuse. 13. 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 A. Status post lumpectomy in 2006, no evidence of recurrence. 14. Generalized osteoarthritis. 15. Neuropathy of the lower extremities. PLAN: The patient is making excellent progress. The pain she has experienced is expected postop eve n and this should gradually diminish. I reassured her. She will continue to work with PT, OT. I fe el like the patient's active and up now that the Wisdom catheter can be removed.
[2018-06-24] MEDS: Ezetimibe 10 MG TAB PO SCH (20:31)
[2018-06-24] MEDS: Atorvastatin Calcium 10 MG TAB PO SCH (20:31)
[2018-06-25] MEDS: Carvedilol 12.5 MG TAB PO SCH ×2 (08:54→17:20)
[2018-06-25] MEDS: Calcium Carbonate 500 MG TAB PO SCH (08:55)
[2018-06-25] MEDS: Enoxaparin Sodium 40 MG/0.4 ML SYRINGE SC SCH (08:56)
[2018-06-25] MEDS: Furosemide 40 MG TAB PO SCH (08:57)
[2018-06-25] MEDS: Ubidecarenone 50 MG CAP PO SCH (08:58)
[2018-06-25] MEDS: Polyethylene Glycol 3350 17 GM Packet PO SCH (08:58)
[2018-06-25] MEDS: HYDROcodone/Acetaminophen 5/325 mg Tablet PO PRN ×2 (09:08→20:25)
[2018-06-25] MEDS: Atorvastatin Calcium 10 MG TAB PO SCH (20:24)
[2018-06-25] MEDS: Ezetimibe 10 MG TAB PO SCH (20:25)
[2018-06-25] MEDS: Senokot S 8.6-50 MG TAB PO SCH (20:26)
[2018-06-26] MEDS: Ubidecarenone 50 MG CAP PO SCH (08:55)
[2018-06-26] MEDS: Enoxaparin Sodium 40 MG/0.4 ML SYRINGE SC SCH (08:55)
[2018-06-26] MEDS: Carvedilol 12.5 MG TAB PO SCH ×2 (08:56→17:07)
[2018-06-26] MEDS: Furosemide 40 MG TAB PO SCH (08:56)
[2018-06-26] MEDS: Senokot S 8.6-50 MG TAB PO SCH ×2 (08:56→20:14)
[2018-06-26] MEDS: Calcium Carbonate 500 MG TAB PO SCH (08:56)
[2018-06-26] MEDS: HYDROcodone/Acetaminophen 5/325 mg Tablet PO PRN ×2 (14:28→20:14)
--- NOTE | 2018-06-26 18:05 | PRG ---
DATE OF SERVICE: 06/25/2018 SUBJECTIVE: The patient said that she is doing better. She is walking a little further. She is sti ll having soreness and some pain in the hip and still using her pain medicine some. She said she is having no trouble urinating since the removal of the catheter, but is having a lot of trouble with co nstipation. She has the MiraLax scheduled daily, but is refusing this because it is creating some tr ouble with bloating and gas. OBJECTIVE: GENERAL: The patient is alert, looks very happy and comfortable and appears in no distress. VITAL SIGNS: Show temperature 97.7, pulse 60, respirations 18, O2 sat 96% on room air, blood pressur e 137/63. LUNGS: Clear. HEART: Regular rate. EXTREMITIES: No edema. Incision over the left hip healing well. ASSESSMENT: 1. Generalized weakness and deconditioning and gait abnormality. A. Secondary to a failed hemiarthroplasty of the left hip requiring removal of hardware and conversi on to a total hip arthroplasty on 06/16/2018. B. Improved, walking further, transferring easier as of 06/25/2018. 2. 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 A. Status post removal of hardware and conversion to a total hip arthroplasty by Dr. Kushal Funes on 06/16/2018. 3. Urinary tract infection. A. Urine culture grew Enterobacter cloacae colony count greater than 100,000 in 06/16/2018. B. Treated initially with IV ceftriaxone, which the organism was sensitive to and then switched to o ral Cipro, which the organism is sensitive to. C. Asymptomatic, completing a 7-day course of Cipro as of 06/23/2018. 4. Anemia of chronic illness. A. Exacerbated by blood loss from recent surgery, requiring transfusion with 1 unit of packed red bl ood cells. 5. Urinary retention. A. Required placement of Wisdom catheter on 06/19/2018. B. The patient is voiding well without the use of a Wisdom catheter as of 06/25/2018. 6. History of inability to place Wisdom catheter on 05/07/2018, requiring urologist, Dr. Styles to p lace the catheter. Complicated by hematuria, which is resolved. 7. Coronary artery disease. A. History of myocardial infarction complicated by cardiac arrest from ventricular tachycardia and p ulmonary edema, requiring placement of stents in the left anterior descending and Implantable cardiov erter defibrillator placement. B. In-stent restenosis in the left anterior descending, required bare metal stent placement by Dr. Arnaldo Baca, slurry plant operator on 05/09/2018. 8. Ischemic cardiomyopathy. A. Echocardiogram shows ejection fraction of 25% to 30%. B. No evidence of acute congestive heart failure as of 06/25/2018. 9. History of ventricular tachycardia. A. Status post dual-chamber implantable cardioverter defibrillator in 2013. 10. Chronic kidney disease, stage 4. 11. Hypertension. 12. Cigarette abuse. 13. 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 A. Status post lumpectomy in 2006, no evidence of recurrence. 14. Generalized osteoarthritis. 15. Neuropathy of the lower extremities. 16. Constipation. A. Secondary to the pain medication. PLAN: Continue PT, OT. We will stop the MiraLax since this created a gas problem and place her on S enokot-S b.i.d. The patient's weight remained stable for the last 2 days at 172. Continue to monito r. We will also stop the patient's supplement.
[2018-06-26] MEDS: Atorvastatin Calcium 10 MG TAB PO SCH (20:13)
[2018-06-26] MEDS: Ezetimibe 10 MG TAB PO SCH (20:14)
[2018-06-27 05:32] LABS: #Basophils 0.1 thou/uL (0.0-0.2); #Eosinphils 0.4 thou/uL (0.0-0.7); #Lymphocytes 1.8 thou/uL (1.20-3.40); #Monocytes 0.8 thou/uL (0.11-0.59); #Neutrophils 3.2 thou/uL (1.40-6.50); %Basophils 1.2 % (0.0-1.0); %Eosinophils 5.7 % (0.0-10.0); %Lymphocytes 29.3 % (21.0-51.0); %Monocytes 12.2 % (0.0-10.0); %Neutrophils 51.7 % (42.0-75.0); Mean Corpuscular HGB CONC 33.1 g/dL (32.0-36.0); Mean Corpuscular Hemoglobin 31.5 pg (27.0-31.0); Mean Corpuscular Volume 95.2 fL (78.0-98.0); Mean Platelet Volume 8.6 fL (7.4-10.4); Platelet Count 229 thou/uL (130-400); RBC Distribution Width 13.3 % (11.5-14.5); Red Blood Cell (RBC) Count 2.53 mill/uL (4.20-5.40); White Blood Cell (WBC) Count 6.2 thou/uL (4.8-10.8)
[2018-06-27 05:37] LABS: Anion Gap 12 mmol/L (10-20); BUN (Urea Nitrogen) 35 mg/dL (9.8-20.1); Calc. Creatinine Clearance 27 mL/min (70-130); Carbon Dioxide 24 mmol/L (23-31); Chloride 108 mmol/L (98-107); Estimated GFR-MDRD 26; Glucose 104 mg/dL (83-110); Potassium 4.1 mmol/L (3.5-5.1); Sodium 140 mmol/L (136-145)
[2018-06-27] MEDS: Ubidecarenone 50 MG CAP PO SCH (08:09)
[2018-06-27] MEDS: Carvedilol 12.5 MG TAB PO SCH ×2 (08:10→18:04)
[2018-06-27] MEDS: Calcium Carbonate 500 MG TAB PO SCH (08:10)
[2018-06-27] MEDS: Senokot S 8.6-50 MG TAB PO SCH ×2 (08:10→19:54)
[2018-06-27] MEDS: Furosemide 20 MG TAB PO SCH (08:10)
[2018-06-27] MEDS: Enoxaparin Sodium 40 MG/0.4 ML SYRINGE SC SCH (08:11)
[2018-06-27] MEDS: HYDROcodone/Acetaminophen 5/325 mg Tablet PO PRN ×3 (08:11→18:04)
--- NOTE | 2018-06-27 11:30 | PRG ---
DATE OF SERVICE: 06/27/2018 SUBJECTIVE: The patient said she is doing better. She still has soreness in the left hip, but not t he pain she had prior to her surgery with weightbearing. She is getting around a little better, stil l requiring help getting up and down. OBJECTIVE: The patient is sitting up in a geriatric chair. She is alert, talkative, looks very comf ortable. Her temperature is 97.3, pulse 60, respirations 20, O2 saturation 96% on room air, blood pr essure 115/57. Lungs were clear. Heart, regular rate. Extremities; no edema. Lab shows H&H of 10.8 and 24.1. White cell count 6200 with 52% segs, 29% lymphocytes, and a platelet count of 229,000. Her sodium is 140, potassium 4.1, BUN 35, creatinine 1.8, GFR is improved from 21 -26. FBS 104. ASSESSMENT: 1. Generalized weakness and deconditioning and gait abnormality. A. Secondary to a failed hemiarthroplasty of the left hip requiring removal of hardware and conversi on to a total hip arthroplasty on 06/16/2018. B. Improved, walking further, transferring easier as of 06/27/2018. 2. 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 A. Status post removal of hardware and conversion to a total hip arthroplasty by Dr. Kushal Funes on 06/16/2018. B. Improved, incision healing well as of 06/27/2018. 3. Urinary tract infection. A. Urine culture grew Enterobacter cloacae colony count greater than 100,000 in 06/16/2018. B. Treated initially with IV ceftriaxone, which the organism was sensitive to and then switched to o ral Cipro, which the organism is sensitive to. C. Asymptomatic. Completed the additional 7-day course of oral Cipro as of 06/27/2018. 4. Anemia of chronic illness. A. Exacerbated by blood loss from recent surgery, requiring transfusion with 1 unit of packed red bl ood cells. B. Hemoglobin stable at 8 as of 06/27/2018. 5. Urinary retention. A. Required placement of Wisdom catheter on 06/19/2018. B. The patient is voiding well without the use of a Wisdom catheter as of 06/27/2018. 6. History of inability to place Wisdom catheter on 05/07/2018, requiring urologist, Dr. Styles to p lace the catheter. Complicated by hematuria, which is resolved. 7. Coronary artery disease. A. History of myocardial infarction complicated by cardiac arrest from ventricular tachycardia and p ulmonary edema, requiring placement of stents in the left anterior descending and Implantable cardiov erter defibrillator placement. B. In-stent restenosis in the left anterior descending, required bare metal stent placement by Dr. Arnaldo Baca, governor assembler on 05/09/2018. 8. Ischemic cardiomyopathy. A. Echocardiogram shows ejection fraction of 25% to 30%. B. No evidence of acute congestive heart failure as of 06/27/2018. 9. History of ventricular tachycardia. A. Status post dual-chamber implantable cardioverter defibrillator in 2013. 10. Chronic kidney disease, stage 4. A. GFR improved from 22 to 26 as of 06/27/2018. 11. Hypertension. 12. Cigarette abuse. 13. 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 A. Status post lumpectomy in 2006, no evidence of recurrence. 14. Generalized osteoarthritis. 15. Neuropathy of the lower extremities. 16. Constipation. A. Secondary to the pain medication. PLAN: Continue present care. Continue PT.
[2018-06-27] MEDS: Atorvastatin Calcium 10 MG TAB PO SCH (19:53)
[2018-06-27] MEDS: Ezetimibe 10 MG TAB PO SCH (19:54)
[2018-06-28] MEDS: Enoxaparin Sodium 30 MG/0.3 ML SYRINGE SC SCH (08:08)
[2018-06-28] MEDS: Ubidecarenone 50 MG CAP PO SCH (08:08)
[2018-06-28] MEDS: Furosemide 20 MG TAB PO SCH (08:09)
[2018-06-28] MEDS: Carvedilol 12.5 MG TAB PO SCH ×2 (08:09→17:30)
[2018-06-28] MEDS: Senokot S 8.6-50 MG TAB PO SCH ×2 (08:09→20:25)
[2018-06-28] MEDS: Furosemide 40 MG TAB PO SCH (08:10)
[2018-06-28] MEDS: Calcium Carbonate 500 MG TAB PO SCH (08:10)
[2018-06-28] MEDS: HYDROcodone/Acetaminophen 5/325 mg Tablet PO PRN ×2 (08:49→20:25)
--- NOTE | 2018-06-28 08:53 | PRG ---
DATE OF SERVICE: 06/28/2018 SUBJECTIVE: The patient said that she is doing better, but she is still a little wobbly, but has mad e progress. OBJECTIVE: GENERAL: The patient is alert and appears in no distress. VITAL SIGNS: Her temperature is 98, pulse 81, respirations 18, O2 sat 95% on room air, blood pressur e 150/68. LUNGS: Clear. HEART: Regular rate. EXTREMITIES: No edema. Incision is healing. ASSESSMENT: 1. Generalized weakness and deconditioning and gait abnormality. A. Secondary to a failed hemiarthroplasty of the left hip requiring removal of hardware and conversi on to a total hip arthroplasty on 06/16/2018. B. Improved, walking further, transferring easier as of 06/28/2018. 2. 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 A. Status post removal of hardware and conversion to a total hip arthroplasty by Dr. Kushal Funes on 06/16/2018. B. Improved, incision healing well as of 06/28/2018. 3. Urinary tract infection. A. Urine culture grew Enterobacter cloacae colony count greater than 100,000 in 06/16/2018. B. Treated initially with IV ceftriaxone, which the organism was sensitive to and then switched to o ral Cipro, which the organism is sensitive to. C. Asymptomatic. Completed the additional 7-day course of oral Cipro as of 06/27/2018. 4. Anemia of chronic illness. A. Exacerbated by blood loss from recent surgery, requiring transfusion with 1 unit of packed red bl ood cells. B. Hemoglobin stable at 8 as of 06/27/2018. 5. Urinary retention. A. Required placement of Wisdom catheter on 06/19/2018. B. The patient is voiding well without the use of a Wisdom catheter as of 06/27/2018. 6. History of inability to place Wisdom catheter on 05/07/2018, requiring urologist, Dr. Styles to p lace the catheter. Complicated by hematuria, which is resolved. 7. Coronary artery disease. A. History of myocardial infarction complicated by cardiac arrest from ventricular tachycardia and p ulmonary edema, requiring placement of stents in the left anterior descending and Implantable cardiov erter defibrillator placement. B. In-stent restenosis in the left anterior descending, required bare metal stent placement by Dr. Arnadlo Baca, playground attendant on 05/09/2018. 8. Ischemic cardiomyopathy. A. Echocardiogram shows ejection fraction of 25% to 30%. B. No evidence of acute congestive heart failure as of 06/28/2018. 9. History of ventricular tachycardia. A. Status post dual-chamber implantable cardioverter defibrillator in 2013. 10. Chronic kidney disease, stage 4. A. GFR improved from 22 to 26 as of 06/27/2018. 11. Hypertension. 12. Cigarette abuse. 13. 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 A. Status post lumpectomy in 2006, no evidence of recurrence. 14. Generalized osteoarthritis. 15. Neuropathy of the lower extremities. 16. Constipation. A. Secondary to the pain medication. PLAN: Continue present care. Continue PT, OT.
[2018-06-28] MEDS: Atorvastatin Calcium 10 MG TAB PO SCH (20:24)
[2018-06-28] MEDS: Ezetimibe 10 MG TAB PO SCH (20:25)
[2018-06-29] MEDS: HYDROcodone/Acetaminophen 5/325 mg Tablet PO PRN ×2 (08:57→18:13)
[2018-06-29] MEDS: Carvedilol 12.5 MG TAB PO SCH ×2 (08:58→18:15)
[2018-06-29] MEDS: Calcium Carbonate 500 MG TAB PO SCH (08:58)
[2018-06-29] MEDS: Senokot S 8.6-50 MG TAB PO SCH ×3 (08:58→20:23)
[2018-06-29] MEDS: Enoxaparin Sodium 30 MG/0.3 ML SYRINGE SC SCH (08:59)
[2018-06-29] MEDS: Ubidecarenone 50 MG CAP PO SCH (09:00)
--- NOTE | 2018-06-29 09:58 | PRG ---
DATE OF SERVICE: 06/29/2018 SUBJECTIVE: The patient said she is doing better. She is doing better with the therapy, still a lit tle bit unsteady in transferring, but improving. Her pain is better. OBJECTIVE: The patient is alert, appears very comfortable and in no distress. Her vital signs show a temperature of 96.6, pulse 60, respirations 18, O2 sat 95% on room air, blood pressure 137/65. Her lungs were clear. Heart, regular rate. Incision healing well over the left hip. Lower extremities , no edema. ASSESSMENT: 1. Generalized weakness and deconditioning and gait abnormality. A. Secondary to a failed hemiarthroplasty of the left hip requiring removal of hardware and conversi on to a total hip arthroplasty on 06/16/2018. B. Improved, walking further, transferring easier as of 06/29/2018. 2. 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 A. Status post removal of hardware and conversion to a total hip arthroplasty by Dr. Kushal Funes on 06/16/2018. B. Improved, incision healing well as of 06/29/2018. 3. Urinary tract infection. A. Urine culture grew Enterobacter cloacae colony count greater than 100,000 in 06/16/2018. B. Treated initially with IV ceftriaxone, which the organism was sensitive to and then switched to o ral Cipro, which the organism is sensitive to. C. Asymptomatic. Completed the additional 7-day course of oral Cipro as of 06/27/2018. 4. Anemia of chronic illness. A. Exacerbated by blood loss from recent surgery, requiring transfusion with 1 unit of packed red bl ood cells. B. Hemoglobin stable at 8 as of 06/27/2018. 5. Urinary retention. A. Required placement of Wisdom catheter on 06/19/2018. B. The patient is voiding well without the use of a Wisdom catheter as of 06/27/2018. 6. History of inability to place Wisdom catheter on 05/07/2018, requiring urologist, Dr. Styles to p lace the catheter. Complicated by hematuria, which is resolved. 7. Coronary artery disease. A. History of myocardial infarction complicated by cardiac arrest from ventricular tachycardia and p ulmonary edema, requiring placement of stents in the left anterior descending and Implantable cardiov erter defibrillator placement. B. In-stent restenosis in the left anterior descending, required bare metal stent placement by Dr. Arnaldo Baca, customer operations specialist on 05/09/2018. 8. Ischemic cardiomyopathy. A. Echocardiogram shows ejection fraction of 25% to 30%. B. No evidence of acute congestive heart failure as of 06/29/2018. 9. History of ventricular tachycardia. A. Status post dual-chamber implantable cardioverter defibrillator in 2013. 10. Chronic kidney disease, stage 4. A. GFR improved from 22 to 26 as of 06/27/2018. 11. Hypertension. 12. Cigarette abuse. 13. 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 A. Status post lumpectomy in 2006, no evidence of recurrence. 14. Generalized osteoarthritis. 15. Neuropathy of the lower extremities. 16. Constipation. A. Secondary to the pain medication. B. Controlled as of 06/29/2018. PLAN: Continue present care. Continue physical therapy.
[2018-06-29] MEDS: Furosemide 20 MG TAB PO SCH (11:43)
[2018-06-29] MEDS: Atorvastatin Calcium 10 MG TAB PO SCH (20:22)
[2018-06-29] MEDS: Ezetimibe 10 MG TAB PO SCH (20:23)
[2018-06-30] MEDS: HYDROcodone/Acetaminophen 5/325 mg Tablet PO PRN ×2 (08:47→20:10)
[2018-06-30] MEDS: Ubidecarenone 50 MG CAP PO SCH (08:49)
[2018-06-30] MEDS: Senokot S 8.6-50 MG TAB PO SCH ×3 (08:50→20:12)
[2018-06-30] MEDS: Furosemide 40 MG TAB PO SCH (08:50)
[2018-06-30] MEDS: Calcium Carbonate 500 MG TAB PO SCH (08:50)
[2018-06-30] MEDS: Carvedilol 12.5 MG TAB PO SCH ×2 (08:50→17:18)
[2018-06-30] MEDS: Enoxaparin Sodium 30 MG/0.3 ML SYRINGE SC SCH (08:50)
--- NOTE | 2018-06-30 10:47 | PRG ---
DATE OF SERVICE: 06/30/2018 SUBJECTIVE: The patient is doing better with her walker and is feeling a little more stable, getting up, going to the bathroom some on her own with the use of her walker and feeling a little more compe tent. The patient is to be on a low sodium diet other than just no added salt. OBJECTIVE: GENERAL: The patient is standing, holding onto her walker just coming out of the bathroom. She is a lert, talkative. She has been walking in the [place] with physical therapy. VITAL SIGNS: Her temperature is 97.8, pulse 61, respirations 20, O2 sat 95% on room air, blood press ure 118/57. Her weight is 173. LUNGS: Clear. HEART: Regular rate. EXTREMITIES: Trace edema. ASSESSMENT: 1. Generalized weakness and deconditioning and gait abnormality. A. Secondary to a failed hemiarthroplasty of the left hip requiring removal of hardware and conversi on to a total hip arthroplasty on 06/16/2018. B. Continued to improve as of 06/30/2018. Walking further and transferring better. 2. 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 A. Status post removal of hardware and conversion to a total hip arthroplasty by Dr. Kushal Funes on 06/16/2018. B. Improved, incision healing well as of 06/30/2018. 3. Urinary tract infection. A. Urine culture grew Enterobacter cloacae colony count greater than 100,000 in 06/16/2018. B. Treated initially with IV ceftriaxone, which the organism was sensitive to and then switched to o ral Cipro, which the organism is sensitive to. C. Asymptomatic. Completed the additional 7-day course of oral Cipro as of 06/27/2018. 4. Anemia of chronic illness. A. Exacerbated by blood loss from recent surgery, requiring transfusion with 1 unit of packed red bl ood cells. B. Hemoglobin stable at 8 as of 06/27/2018. 5. Urinary retention. A. Required placement of Wisdom catheter on 06/19/2018. B. The patient is voiding well without the use of a Wisdom catheter as of 06/27/2018. 6. History of inability to place Wisdom catheter on 05/07/2018, requiring urologist, Dr. Styles to p lace the catheter. Complicated by hematuria, which is resolved. 7. Coronary artery disease. A. History of myocardial infarction complicated by cardiac arrest from ventricular tachycardia and p ulmonary edema, requiring placement of stents in the left anterior descending and Implantable cardiov erter defibrillator placement. B. In-stent restenosis in the left anterior descending, required bare metal stent placement by Dr. Arnaldo Baca, rn long term care on 05/09/2018. 8. Ischemic cardiomyopathy. A. Echocardiogram shows ejection fraction of 25% to 30%. B. No evidence of acute congestive heart failure as of 06/30/2018. 9. History of ventricular tachycardia. A. Status post dual-chamber implantable cardioverter defibrillator in 2013. 10. Chronic kidney disease, stage 4. A. GFR improved from 22 to 26 as of 06/27/2018. 11. Hypertension. 12. Cigarette abuse. 13. 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 A. Status post lumpectomy in 2006, no evidence of recurrence. 14. Generalized osteoarthritis. 15. Neuropathy of the lower extremities. 16. Constipation. A. Secondary to the pain medication. B. Controlled as of 06/29/2018. PLAN: Continue PT, OT. Switch the diet to low sodium and no added salt.
[2018-06-30] MEDS: Atorvastatin Calcium 10 MG TAB PO SCH (20:10)
[2018-06-30] MEDS: Ezetimibe 10 MG TAB PO SCH (20:11)
[2018-07-01] MEDS: HYDROcodone/Acetaminophen 5/325 mg Tablet PO PRN ×2 (07:31→17:56)
[2018-07-01] MEDS: Carvedilol 12.5 MG TAB PO SCH ×2 (08:44→17:16)
[2018-07-01] MEDS: Senokot S 8.6-50 MG TAB PO SCH ×2 (08:44→21:08)
[2018-07-01] MEDS: Enoxaparin Sodium 30 MG/0.3 ML SYRINGE SC SCH (08:45)
[2018-07-01] MEDS: Calcium Carbonate 500 MG TAB PO SCH (08:45)
[2018-07-01] MEDS: Furosemide 20 MG TAB PO SCH (08:45)
[2018-07-01] MEDS: Ubidecarenone 50 MG CAP PO SCH (08:46)
--- NOTE | 2018-07-01 11:00 | PRG ---
DATE OF SERVICE: 07/01/2018 SUBJECTIVE: The patient said she is doing good. She is feeling better. Still has soreness in the l eft hip, but different from the weightbearing pain she had prior to the surgery and the pain she is having now is improving. She is doing better with her therapy. OBJECTIVE: The patient is sitting up in a Alison chair. She is alert, talkative, appears very comfort able and in no distress. Her temperature is 97.1, pulse 61, respirations 16, O2 sat 98% on room air, blood pressure 178/77, has not yet had morning meds. Last evening, blood pressure 116/57. Lungs ar e clear. Heart, regular rate. Extremities just trace edema. Weight is 171. ASSESSMENT: 1. Generalized weakness and deconditioning and gait abnormality. A. Secondary to a failed hemiarthroplasty of the left hip requiring removal of hardware and conversi on to a total hip arthroplasty on 06/16/2018. B. Continued to improve as of 07/01/2018. Walking further and transferring better. 2. 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 A. Status post removal of hardware and conversion to a total hip arthroplasty by Dr. Kushal Funes on 06/16/2018. B. Improved, incision healing well as of 07/01/2018. 3. Urinary tract infection. A. Urine culture grew Enterobacter cloacae colony count greater than 100,000 in 06/16/2018. B. Treated initially with IV ceftriaxone, which the organism was sensitive to and then switched to o ral Cipro, which the organism is sensitive to. C. Asymptomatic. Completed the additional 7-day course of oral Cipro as of 06/27/2018. 4. Anemia of chronic illness. A. Exacerbated by blood loss from recent surgery, requiring transfusion with 1 unit of packed red bl ood cells. B. Hemoglobin stable at 8 as of 06/27/2018. 5. Urinary retention. A. Required placement of Wisdom catheter on 06/19/2018. B. The patient is voiding well without the use of a Wisdom catheter as of 07/01/2018. 6. History of inability to place Wisdom catheter on 05/07/2018, requiring urologist, Dr. Styles to p lace the catheter. Complicated by hematuria, which is resolved. 7. Coronary artery disease. A. History of myocardial infarction complicated by cardiac arrest from ventricular tachycardia and p ulmonary edema, requiring placement of stents in the left anterior descending and Implantable cardiov erter defibrillator placement. B. In-stent restenosis in the left anterior descending, required bare metal stent placement by Dr. Arnaldo Baca, circular knitter helper on 05/09/2018. 8. Ischemic cardiomyopathy. A. Echocardiogram shows ejection fraction of 25% to 30%. B. No evidence of acute congestive heart failure as of 07/01/2018. 9. History of ventricular tachycardia. A. Status post dual-chamber implantable cardioverter defibrillator in 2013. 10. Chronic kidney disease, stage 4. A. GFR improved from 22 to 26 as of 06/27/2018. 11. Hypertension. 12. Cigarette abuse. 13. 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 A. Status post lumpectomy in 2006, no evidence of recurrence. 14. Generalized osteoarthritis. 15. Neuropathy of the lower extremities. 16. Constipation. A. Secondary to the pain medication. B. Controlled as of 07/01/2018. PLAN: The patient continues to improve. We will continue present care. Continue PT and OT.
[2018-07-01] MEDS: Atorvastatin Calcium 10 MG TAB PO SCH (21:07)
[2018-07-01] MEDS: Ezetimibe 10 MG TAB PO SCH (21:08)
[2018-07-02] MEDS: HYDROcodone/Acetaminophen 5/325 mg Tablet PO PRN ×2 (08:30→20:36)
[2018-07-02] MEDS: Ubidecarenone 50 MG CAP PO SCH (08:31)
[2018-07-02] MEDS: Enoxaparin Sodium 30 MG/0.3 ML SYRINGE SC SCH (08:31)
[2018-07-02] MEDS: Senokot S 8.6-50 MG TAB PO SCH ×2 (08:32→20:36)
[2018-07-02] MEDS: Carvedilol 12.5 MG TAB PO SCH ×2 (08:32→17:35)
[2018-07-02] MEDS: Furosemide 40 MG TAB PO SCH (08:33)
[2018-07-02] MEDS: Calcium Carbonate 500 MG TAB PO SCH (08:33)
[2018-07-02] MEDS: Atorvastatin Calcium 10 MG TAB PO SCH (20:35)
[2018-07-02] MEDS: Ezetimibe 10 MG TAB PO SCH (20:36)
[2018-07-03] MEDS: Ubidecarenone 50 MG CAP PO SCH (08:19)
[2018-07-03] MEDS: Enoxaparin Sodium 30 MG/0.3 ML SYRINGE SC SCH (08:20)
[2018-07-03] MEDS: Calcium Carbonate 500 MG TAB PO SCH (08:20)
[2018-07-03] MEDS: Carvedilol 12.5 MG TAB PO SCH ×2 (08:20→17:33)
[2018-07-03] MEDS: Furosemide 40 MG TAB PO SCH (08:20)
[2018-07-03] MEDS: Senokot S 8.6-50 MG TAB PO SCH ×2 (08:21→20:08)
[2018-07-03] MEDS: HYDROcodone/Acetaminophen 5/325 mg Tablet PO PRN ×2 (09:49→20:08)
[2018-07-03] MEDS: Ezetimibe 10 MG TAB PO SCH (20:07)
[2018-07-03] MEDS: Atorvastatin Calcium 10 MG TAB PO SCH (20:07)
[2018-07-04] MEDS: HYDROcodone/Acetaminophen 5/325 mg Tablet PO PRN ×3 (08:30→20:58)
[2018-07-04] MEDS: Carvedilol 12.5 MG TAB PO SCH ×2 (08:31→17:44)
[2018-07-04] MEDS: Calcium Carbonate 500 MG TAB PO SCH (08:31)
[2018-07-04] MEDS: Senokot S 8.6-50 MG TAB PO SCH ×2 (08:31→20:58)
[2018-07-04] MEDS: Furosemide 20 MG TAB PO SCH (08:32)
[2018-07-04] MEDS: Ubidecarenone 50 MG CAP PO SCH (08:32)
[2018-07-04] MEDS: Enoxaparin Sodium 30 MG/0.3 ML SYRINGE SC SCH (08:32)
[2018-07-04] MEDS: Saccharomyces boulardii 250 MG CAP PO SCH (08:40)
[2018-07-04] MEDS: guaiFENesin ER 600 MG TAB PO SCH ×2 (08:40→20:57)
[2018-07-04 08:54] LABS: #Basophils 0.1 thou/uL (0.0-0.2); #Eosinphils 0.3 thou/uL (0.0-0.7); #Lymphocytes 1.3 thou/uL (1.20-3.40); #Monocytes 0.7 thou/uL (0.11-0.59); #Neutrophils 6.4 thou/uL (1.40-6.50); %Basophils 0.7 % (0.0-1.0); %Eosinophils 3.3 % (0.0-10.0); %Lymphocytes 14.5 % (21.0-51.0); %Monocytes 8.1 % (0.0-10.0); %Neutrophils 73.4 % (42.0-75.0); Mean Corpuscular HGB CONC 33.5 g/dL (32.0-36.0); Mean Corpuscular Hemoglobin 31.5 pg (27.0-31.0); Mean Corpuscular Volume 93.9 fL (78.0-98.0); Mean Platelet Volume 9.8 fL (7.4-10.4); Platelet Count 241 thou/uL (130-400); Red Blood Cell (RBC) Count 2.87 mill/uL (4.20-5.40); White Blood Cell (WBC) Count 8.7 thou/uL (4.8-10.8)
[2018-07-04 09:09] LABS: Anion Gap 12 mmol/L (10-20); BUN (Urea Nitrogen) 40 mg/dL (9.8-20.1); Calc. Creatinine Clearance 25 mL/min (70-130); Calcium 8.5 mg/dL (7.8-10.44); Carbon Dioxide 23 mmol/L (23-31); Chloride 106 mmol/L (98-107); Estimated GFR-MDRD 25; Glucose 124 mg/dL (83-110); Potassium 4.4 mmol/L (3.5-5.1); Sodium 137 mmol/L (136-145)
--- NOTE | 2018-07-04 09:20 | PRG ---
DATE OF SERVICE: 07/04/2018 SUBJECTIVE: The patient said that she does not feel very good this morning. Late yesterday afternoo n she has developed a nonproductive cough. She said she does not think she has run any fever. She rodriguez s not had any sputum production. She denies any chest pain. OBJECTIVE: The patient has a little productive sounding cough. She does not look like she feels carey y well, but does not appear in any acute distress. Her temperature last evening was 98.3, this morni ng is pending. Pulse is 69, respirations 19, O2 sat 96% on room air, blood pressure 120/60. Lungs; the patient has good breath sounds, there are rales at the right posterior base, otherwise chest jacki r. Heart, regular rate. Extremities, no edema. ASSESSMENT: 1. Generalized weakness and deconditioning and gait abnormality. A. Secondary to a failed hemiarthroplasty of the left hip requiring removal of hardware and conversi on to a total hip arthroplasty on 06/16/2018. B. Improved as of 07/04/2018. 2. 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 A. Status post removal of hardware and conversion to a total hip arthroplasty by Dr. Kushal Funes on 06/16/2018. B. Improved, incision healing well as of 07/04/2018. 3. Urinary tract infection. A. Urine culture grew Enterobacter cloacae colony count greater than 100,000 in 06/16/2018. B. Treated initially with IV ceftriaxone, which the organism was sensitive to and then switched to o ral Cipro, which the organism is sensitive to. C. Asymptomatic. Completed the additional 7-day course of oral Cipro as of 06/27/2018. 4. Anemia of chronic illness. A. Exacerbated by blood loss from recent surgery, requiring transfusion with 1 unit of packed red bl ood cells. B. Hemoglobin stable at 8 as of 06/27/2018. 5. Urinary retention. A. Required placement of Wisdom catheter on 06/19/2018. B. The patient is voiding well without the use of a Wisdom catheter as of 07/01/2018. 6. History of inability to place Wisdom catheter on 05/07/2018, requiring urologist, Dr. Styles to p lace the catheter. Complicated by hematuria, which is resolved. 7. Coronary artery disease. A. History of myocardial infarction complicated by cardiac arrest from ventricular tachycardia and p ulmonary edema, requiring placement of stents in the left anterior descending and Implantable cardiov erter defibrillator placement. B. In-stent restenosis in the left anterior descending, required bare metal stent placement by Dr. Arnaldo Baca, airline stewardess on 05/09/2018. 8. Ischemic cardiomyopathy. A. Echocardiogram shows ejection fraction of 25% to 30%. B. No evidence of acute congestive heart failure as of 07/04/2018. 9. History of ventricular tachycardia. A. Status post dual-chamber implantable cardioverter defibrillator in 2013. 10. Chronic kidney disease, stage 4. A. GFR improved from 22 to 26 as of 06/27/2018. 11. Hypertension. 12. Cigarette abuse. 13. 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 A. Status post lumpectomy in 2006, no evidence of recurrence. 14. Generalized osteoarthritis. 15. Neuropathy of the lower extremities. 16. Constipation. A. Secondary to the pain medication. B. Controlled as of 07/01/2018. 17. Acute bronchitis as of 07/04/2018. PLAN: Continue present care. We will place the patient on Mucinex 1200 mg b.i.d. for the bronchitis and Levaquin 500 mg daily. A chest x-ray has been ordered.
--- NOTE | 2018-07-04 09:22 | PRG ---
DATE OF SERVICE: 07/02/2018 SUBJECTIVE: The patient said she is doing good, soreness continues to decrease in her hip on the lef t. She has had no shortness of breath nor chest pain. She is due to see Dr. Funes on Wednesday, 07/04, but I am not sure of the time. This will be checked for her early Wednesday. OBJECTIVE: The patient is sitting up in a chair, appears comfortable, in no distress. Her vital sig ns show temperature 97, pulse 69, respirations 18, O2 sat 94% on room air, blood pressure 155/63. Renu ngs are clear. Heart, regular rate. Extremities show no edema. ASSESSMENT: 1. Generalized weakness and deconditioning and gait abnormality. A. Secondary to a failed hemiarthroplasty of the left hip requiring removal of hardware and conversi on to a total hip arthroplasty on 06/16/2018. B. Continued to improve as of 07/02/2018. Walking further and transferring better. 2. 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 A. Status post removal of hardware and conversion to a total hip arthroplasty by Dr. Kushal Funes on 06/16/2018. B. Improved, incision healing well as of 07/02/2018. 3. Urinary tract infection. A. Urine culture grew Enterobacter cloacae colony count greater than 100,000 in 06/16/2018. B. Treated initially with IV ceftriaxone, which the organism was sensitive to and then switched to o ral Cipro, which the organism is sensitive to. C. Asymptomatic. Completed the additional 7-day course of oral Cipro as of 06/27/2018. 4. Anemia of chronic illness. A. Exacerbated by blood loss from recent surgery, requiring transfusion with 1 unit of packed red bl ood cells. B. Hemoglobin stable at 8 as of 06/27/2018. 5. Urinary retention. A. Required placement of Wisdom catheter on 06/19/2018. B. The patient is voiding well without the use of a Wisdom catheter as of 07/01/2018. 6. History of inability to place Wisdom catheter on 05/07/2018, requiring urologist, Dr. Styles to p lace the catheter. Complicated by hematuria, which is resolved. 7. Coronary artery disease. A. History of myocardial infarction complicated by cardiac arrest from ventricular tachycardia and p ulmonary edema, requiring placement of stents in the left anterior descending and Implantable cardiov erter defibrillator placement. B. In-stent restenosis in the left anterior descending, required bare metal stent placement by Dr. Arnaldo Baca, call center professional on 05/09/2018. 8. Ischemic cardiomyopathy. A. Echocardiogram shows ejection fraction of 25% to 30%. B. No evidence of acute congestive heart failure as of 07/02/2018. 9. History of ventricular tachycardia. A. Status post dual-chamber implantable cardioverter defibrillator in 2013. 10. Chronic kidney disease, stage 4. A. GFR improved from 22 to 26 as of 06/27/2018. 11. Hypertension. 12. Cigarette abuse. 13. 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 A. Status post lumpectomy in 2006, no evidence of recurrence. 14. Generalized osteoarthritis. 15. Neuropathy of the lower extremities. 16. Constipation. A. Secondary to the pain medication. B. Controlled as of 07/01/2018. PLAN: Continue present care. Continue PT and OT early Wednesday morning on 07/04/2018. Nursing staff will check with Dr. Funes's office regarding appointment.
--- NOTE | 2018-07-04 09:26 | RAD ---
PA AND LATERAL OF THE CHEST: COMPARISON: Prior exam dated 06/09/18. INDICATION: Cough and rales of the right posterior lung base. COMPARISON: Prior exam dated June 09, 2018. FINDINGS: No confluent airspace opacity or pleural effusion is evident. There is cardiomegaly that is stable. Pulmonary vasculature is normal appearing. AICD is unchanged. Vascular calcification of aortic arc h is stable. There is diffuse osteopenia. IMPRESSION: Stable cardiomegaly. No acute airspace opacity is evident to suggest pneumonia. POS: KEVAN
[2018-07-04] MEDS: Ezetimibe 10 MG TAB PO SCH (20:57)
[2018-07-04] MEDS: Atorvastatin Calcium 10 MG TAB PO SCH (20:57)
[2018-07-05] MEDS: HYDROcodone/Acetaminophen 5/325 mg Tablet PO PRN ×2 (08:58→20:03)
[2018-07-05] MEDS: Ubidecarenone 50 MG CAP PO SCH (08:59)
[2018-07-05] MEDS: guaiFENesin ER 600 MG TAB PO SCH ×2 (08:59→20:03)
[2018-07-05] MEDS: Carvedilol 12.5 MG TAB PO SCH ×2 (09:00→17:35)
[2018-07-05] MEDS: Saccharomyces boulardii 250 MG CAP PO SCH (09:00)
[2018-07-05] MEDS: Senokot S 8.6-50 MG TAB PO SCH ×2 (09:00→20:07)
[2018-07-05] MEDS: Calcium Carbonate 500 MG TAB PO SCH (09:00)
[2018-07-05] MEDS: Furosemide 40 MG TAB PO SCH (09:01)
[2018-07-05] MEDS: Enoxaparin Sodium 30 MG/0.3 ML SYRINGE SC SCH (09:01)
--- NOTE | 2018-07-05 10:26 | PRG ---
DATE OF SERVICE: 07/05/2018 SUBJECTIVE: The patient said she is coughing still, it is nonproductive. She said she does feel a l ittle bit better today. She did see Dr. Funes, her orthopedic surgeon, yesterday who was happy with her progress and did not make any changes. OBJECTIVE: The patient is sitting up in her chair. She is alert, looks better, appears in no distre ss. Her vital signs show a temperature of 96.7, pulse 61, respirations 17, O2 sat 95% on room air, b lood pressure 132/60. Lungs, the patient has good breath sounds with some expiratory rhonchi and vazquez e wheeze. Heart, regular rate. Extremities; no edema. Lab from yesterday showed an H&H of 9 and 27 with a white cell count 8700 with 73% segs, 15% lymphocy lupillo, and a platelet count of 241,000. Her sodium was 137, potassium 4.4. Her BUN was 40, creatinine 1.93, glucose 124. Her chest x-ray showed stable cardiomegaly. There was no evidence of any pneumo ayesha. The pulmonary vasculature appeared normal. Her AICD was present. X-ray was reviewed by myself and agreed there was no evidence of any infiltrate or failure. Heart is enlarged, but stable. ASSESSMENT: 1. Generalized weakness and deconditioning and gait abnormality. A. Secondary to a failed hemiarthroplasty of the left hip requiring removal of hardware and conversi on to a total hip arthroplasty on 06/16/2018. B. Improved as of 07/05/2018. 2. 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 A. Status post removal of hardware and conversion to a total hip arthroplasty by Dr. Kushal Funes on 06/16/2018. B. Improved. Incision healing well. Recheck with Dr. Funes on 07/04/2018 showed she is doing well . Overall improved as of 07/05/2018. 3. Urinary tract infection. A. Urine culture grew Enterobacter cloacae colony count greater than 100,000 in 06/16/2018. B. Treated initially with IV ceftriaxone, which the organism was sensitive to and then switched to o ral Cipro, which the organism is sensitive to. C. Asymptomatic. Completed the additional 7-day course of oral Cipro as of 06/27/2018. 4. Anemia of chronic illness. A. Exacerbated by blood loss from recent surgery, requiring transfusion with 1 unit of packed red bl ood cells. B Hemoglobin improved to 9 as of 07/04/2018. 5. Urinary retention. A. Required placement of Wisdom catheter on 06/19/2018. B. The patient is voiding well without the use of a Wisdom catheter as of 07/01/2018. 6. History of inability to place Wisdom catheter on 05/07/2018, requiring urologist, Dr. Styles to p lace the catheter. Complicated by hematuria, which is resolved. 7. Coronary artery disease. A. History of myocardial infarction complicated by cardiac arrest from ventricular tachycardia and p ulmonary edema, requiring placement of stents in the left anterior descending and Implantable cardiov erter defibrillator placement. B. In-stent restenosis in the left anterior descending, required bare metal stent placement by Dr. Arnaldo Baca, cuprous chloride operator on 05/09/2018. 8. Ischemic cardiomyopathy. A. Echocardiogram shows ejection fraction of 25% to 30%. B. No evidence of acute congestive heart failure as of 07/05/2018. 9. History of ventricular tachycardia. A. Status post dual-chamber implantable cardioverter defibrillator in 2013. 10. Chronic kidney disease, stage 4. A. GFR 25 as of 07/04/2018. 11. Hypertension. 12. Cigarette abuse. 13. 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 A. Status post lumpectomy in 2006, no evidence of recurrence. 14. Generalized osteoarthritis. 15. Neuropathy of the lower extremities. 16. Constipation. A. Secondary to the pain medication. B. Controlled as of 07/01/2018. 17. Asthmatic bronchitis as of 07/04/2018. A. A little improved, but has expiratory rhonchi present as of 07/05/2018. Chest x-ray shows no faby dence of pneumonia. PLAN: Continue the Levaquin and the Mucinex. I will begin patient on nebulizing treatments with Du oNeb q.i.d. Continue PT.
[2018-07-05] MEDS: Ezetimibe 10 MG TAB PO SCH (20:03)
[2018-07-05] MEDS: Atorvastatin Calcium 10 MG TAB PO SCH (20:03)
[2018-07-06] MEDS ORDERED: predniSONE 20 MG TAB PO SCH (08:15)
[2018-07-06] MEDS: Calcium Carbonate 500 MG TAB PO SCH (08:51)
[2018-07-06] MEDS: Saccharomyces boulardii 250 MG CAP PO SCH (08:51)
[2018-07-06] MEDS: guaiFENesin ER 600 MG TAB PO SCH ×2 (08:51→20:41)
[2018-07-06] MEDS: Ubidecarenone 50 MG CAP PO SCH (08:51)
[2018-07-06] MEDS: Senokot S 8.6-50 MG TAB PO SCH ×2 (08:51→20:44)
[2018-07-06] MEDS: Enoxaparin Sodium 30 MG/0.3 ML SYRINGE SC SCH (08:52)
[2018-07-06] MEDS: Furosemide 20 MG TAB PO SCH (08:52)
[2018-07-06] MEDS: Carvedilol 12.5 MG TAB PO SCH ×2 (08:52→17:55)
[2018-07-06] MEDS: HYDROcodone/Acetaminophen 5/325 mg Tablet PO PRN ×2 (08:56→17:55)
--- NOTE | 2018-07-06 11:15 | PRG ---
DATE OF SERVICE: 07/06/2018 SUBJECTIVE: The patient said that she is doing better with her therapy. She said she still has a fr equent cough. She does not feel short of breath. OBJECTIVE: The patient has a productive sounding cough, but does not appear in any acute distress. Her vital signs show a temperature 97.4, pulse 63, respirations 16, O2 sat 98% on room air, blood pre ssure 152/71. Her lungs have good breath sounds with some expiratory rhonchi and some end expiratory wheeze on forced expiration. Heart, regular rate. Extremities, no edema. Weight is down to 168. ASSESSMENT: 1. Generalized weakness and deconditioning and gait abnormality. A. Secondary to a failed hemiarthroplasty of the left hip requiring removal of hardware and conversi on to a total hip arthroplasty on 06/16/2018. B. Improved as of 07/06/2018. 2. 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 A. Status post removal of hardware and conversion to a total hip arthroplasty by Dr. Kushal Funes on 06/16/2018. B. Improved. Incision healing well. Recheck with Dr. Funes on 07/04/2018 showed she is doing well . Overall improved as of 07/06/2018. 3. Urinary tract infection. A. Urine culture grew Enterobacter cloacae colony count greater than 100,000 in 06/16/2018. B. Treated initially with IV ceftriaxone, which the organism was sensitive to and then switched to o ral Cipro, which the organism is sensitive to. C. Asymptomatic. Completed the additional 7-day course of oral Cipro as of 06/27/2018. 4. Anemia of chronic illness. A. Exacerbated by blood loss from recent surgery, requiring transfusion with 1 unit of packed red bl ood cells. B Hemoglobin improved to 9 as of 07/04/2018. 5. Urinary retention. A. Required placement of Wisdom catheter on 06/19/2018. B. The patient is voiding well without the use of a Wisdom catheter as of 07/01/2018. 6. History of inability to place Wisdom catheter on 05/07/2018, requiring urologist, Dr. Styles to p lace the catheter. Complicated by hematuria, which is resolved. 7. Coronary artery disease. A. History of myocardial infarction complicated by cardiac arrest from ventricular tachycardia and p ulmonary edema, requiring placement of stents in the left anterior descending and Implantable cardiov erter defibrillator placement. B. In-stent restenosis in the left anterior descending, required bare metal stent placement by Dr. Arnaldo Baca, podiatric medicine professor on 05/09/2018. 8. Ischemic cardiomyopathy. A. Echocardiogram shows ejection fraction of 25% to 30%. B. No evidence of acute congestive heart failure as of 07/06/2018. 9. History of ventricular tachycardia. A. Status post dual-chamber implantable cardioverter defibrillator in 2013. 10. Chronic kidney disease, stage 4. A. GFR 25 as of 07/04/2018. 11. Hypertension. 12. Cigarette abuse. 13. 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 A. Status post lumpectomy in 2006, no evidence of recurrence. 14. Generalized osteoarthritis. 15. Neuropathy of the lower extremities. 16. Constipation. A. Secondary to the pain medication. B. Controlled as of 07/01/2018. 17. Asthmatic bronchitis as of 07/04/2018. A. Improved, but has expiratory rhonchi and wheezes as of 07/06/2018. PLAN: Continue present care. Continue PT, OT. Continue neb treatments and antibiotics. We will ad d prednisone to help with the bronchospasms.
[2018-07-06] MEDS: Ezetimibe 10 MG TAB PO SCH (20:41)
[2018-07-06] MEDS: Atorvastatin Calcium 10 MG TAB PO SCH (20:42)
[2018-07-06] MEDS: Ondansetron ODT 4 MG TAB PO PRN (23:08)
[2018-07-07] MEDS: Ubidecarenone 50 MG CAP PO SCH (08:08)
[2018-07-07] MEDS: Enoxaparin Sodium 30 MG/0.3 ML SYRINGE SC SCH (08:08)
[2018-07-07] MEDS: Carvedilol 12.5 MG TAB PO SCH ×2 (08:09→17:29)
[2018-07-07] MEDS: Saccharomyces boulardii 250 MG CAP PO SCH (08:09)
[2018-07-07] MEDS: Senokot S 8.6-50 MG TAB PO SCH ×2 (08:09→20:04)
[2018-07-07] MEDS: guaiFENesin ER 600 MG TAB PO SCH ×2 (08:09→20:04)
[2018-07-07] MEDS: predniSONE 20 MG TAB PO SCH (08:09)
[2018-07-07] MEDS: Calcium Carbonate 500 MG TAB PO SCH (08:09)
[2018-07-07] MEDS: Furosemide 40 MG TAB PO SCH (08:09)
[2018-07-07] MEDS: HYDROcodone/Acetaminophen 5/325 mg Tablet PO PRN ×3 (08:12→22:09)
--- NOTE | 2018-07-07 09:54 | PRG ---
DATE OF SERVICE: 07/07/2018 SUBJECTIVE: The patient said she is doing better, but still coughing. It is nonproductive. OBJECTIVE: The patient looks much better. She is coughing, but not as often. The cough sounds less productive. Her vital signs show temperature 98.1, pulse 93, respirations 20, O2 saturation 97% on room air, blood pressure 144/65, weight 164. Lungs are clear on normal respirations. There is expir atory rhonchi and wheeze on forced expiration. Overall, her lungs sound better. Heart, regular rate. Extremities, no edema. ASSESSMENT: 1. Generalized weakness and deconditioning and gait abnormality. A. Secondary to a failed hemiarthroplasty of the left hip requiring removal of hardware and conversi on to a total hip arthroplasty on 06/16/2018. B. Improved as of 07/07/2018. 2. 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 A. Status post removal of hardware and conversion to a total hip arthroplasty by Dr. Kushal Funes on 06/16/2018. B. Improved. Incision healing well. Recheck with Dr. Funes on 07/04/2018 showed she is doing well . Overall improved as of 07/07/2018. 3. Urinary tract infection. A. Urine culture grew Enterobacter cloacae colony count greater than 100,000 in 06/16/2018. B. Treated initially with IV ceftriaxone, which the organism was sensitive to and then switched to o ral Cipro, which the organism is sensitive to. C. Asymptomatic. Completed the additional 7-day course of oral Cipro as of 06/27/2018. 4. Anemia of chronic illness. A. Exacerbated by blood loss from recent surgery, requiring transfusion with 1 unit of packed red bl ood cells. B Hemoglobin improved to 9 as of 07/04/2018. 5. Urinary retention. A. Required placement of Wisdom catheter on 06/19/2018. B. The patient is voiding well without the use of a Wisdom catheter as of 07/01/2018. 6. History of inability to place Wisdom catheter on 05/07/2018, requiring urologist, Dr. Styles to p lace the catheter. Complicated by hematuria, which is resolved. 7. Coronary artery disease. A. History of myocardial infarction complicated by cardiac arrest from ventricular tachycardia and p ulmonary edema, requiring placement of stents in the left anterior descending and Implantable cardiov erter defibrillator placement. B. In-stent restenosis in the left anterior descending, required bare metal stent placement by Dr. Arnaldo Baca, shop mechanic on 05/09/2018. 8. Ischemic cardiomyopathy. A. Echocardiogram shows ejection fraction of 25% to 30%. B. No evidence of acute congestive heart failure as of 07/07/2018. 9. History of ventricular tachycardia. A. Status post dual-chamber implantable cardioverter defibrillator in 2013. 10. Chronic kidney disease, stage 4. A. GFR 25 as of 07/04/2018. 11. Hypertension. 12. Cigarette abuse. 13. 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 A. Status post lumpectomy in 2006, no evidence of recurrence. 14. Generalized osteoarthritis. 15. Neuropathy of the lower extremities. 16. Constipation. A. Secondary to the pain medication. B. Controlled as of 07/01/2018. 17. Asthmatic bronchitis as of 07/04/2018. A. Improved as of 07/07/2018. PLAN: The patient was started on a tapering dose of prednisone yesterday. She seems a little better . The cough is a little less and less productive. Continue PT and OT.
[2018-07-07] MEDS ORDERED: Guaifenesin DM 100-10/5 ML UDCUP PO PRN (16:27)
[2018-07-07] MEDS: Guaifenesin DM 100-10/5 ML UDCUP PO PRN ×2 (17:29→22:09)
[2018-07-07] MEDS: Atorvastatin Calcium 10 MG TAB PO SCH (20:02)
[2018-07-07] MEDS: Ezetimibe 10 MG TAB PO SCH (20:04)
[2018-07-08] MEDS: HYDROcodone/Acetaminophen 5/325 mg Tablet PO PRN ×2 (03:44→20:16)
[2018-07-08] MEDS: Guaifenesin DM 100-10/5 ML UDCUP PO PRN ×3 (03:45→20:10)
[2018-07-08] MEDS: Ubidecarenone 50 MG CAP PO SCH (08:34)
[2018-07-08] MEDS: Enoxaparin Sodium 30 MG/0.3 ML SYRINGE SC SCH (08:34)
[2018-07-08] MEDS: Carvedilol 12.5 MG TAB PO SCH ×2 (08:35→17:37)
[2018-07-08] MEDS: Saccharomyces boulardii 250 MG CAP PO SCH (08:35)
[2018-07-08] MEDS: guaiFENesin ER 600 MG TAB PO SCH ×2 (08:35→20:11)
[2018-07-08] MEDS: Senokot S 8.6-50 MG TAB PO SCH ×2 (08:36→20:11)
[2018-07-08] MEDS: Calcium Carbonate 500 MG TAB PO SCH (08:36)
[2018-07-08] MEDS: Furosemide 20 MG TAB PO SCH (08:36)
[2018-07-08] MEDS: predniSONE 20 MG TAB PO SCH (08:36)
--- NOTE | 2018-07-08 10:54 | PRG ---
DATE OF SERVICE: 07/08/2018 SUBJECTIVE: The patient said she feels a lot better today. Her cough is better. She is using the R obitussin-DM which has helped with her cough. She remains on the tapering dose of the prednisone. S he said she is doing better with her therapy. OBJECTIVE: The patient looks much better today. She is sitting up in a chair, having finished her b reakfast. She appears in no distress and is not coughing this morning. Her vital signs show a tempe rature of 97.8, pulse 66, respirations 20, O2 sat 95% on room air, blood pressure 145/67. Her lungs are clear with no rales on just normal respiration. There is no wheeze or rhonchi, but on some more forced expiration, there is still the rhonchi and wheeze on expiration. Overall, though the lungs so und much better. Heart, regular rate. Extremities, no edema. ASSESSMENT: 1. Generalized weakness and deconditioning and gait abnormality. A. Secondary to a failed hemiarthroplasty of the left hip requiring removal of hardware and conversi on to a total hip arthroplasty on 06/16/2018. B. Improved as of 07/08/2018. 2. 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 A. Status post removal of hardware and conversion to a total hip arthroplasty by Dr. Kushal Funes on 06/16/2018. B. Improved. Incision healing well. Recheck with Dr. Funes on 07/04/2018 showed she is doing well . Continued improvement as of 07/08/2018. 3. Urinary tract infection. A. Urine culture grew Enterobacter cloacae colony count greater than 100,000 in 06/16/2018. B. Treated initially with IV ceftriaxone, which the organism was sensitive to and then switched to o ral Cipro, which the organism is sensitive to. C. Asymptomatic. Completed the additional 7-day course of oral Cipro as of 06/27/2018. 4. Anemia of chronic illness. A. Exacerbated by blood loss from recent surgery, requiring transfusion with 1 unit of packed red bl ood cells. B Hemoglobin improved to 9 as of 07/04/2018. 5. Urinary retention. A. Required placement of Wisdom catheter on 06/19/2018. B. The patient is voiding well without the use of a Wisdom catheter as of 07/01/2018. 6. History of inability to place Wisdom catheter on 05/07/2018, requiring urologist, Dr. Styles to p lace the catheter. Complicated by hematuria, which is resolved. 7. Coronary artery disease. A. History of myocardial infarction complicated by cardiac arrest from ventricular tachycardia and p ulmonary edema, requiring placement of stents in the left anterior descending and Implantable cardiov erter defibrillator placement. B. In-stent restenosis in the left anterior descending, required bare metal stent placement by Dr. Arnaldo Baca, certified ethical hacker on 05/09/2018. 8. Ischemic cardiomyopathy. A. Echocardiogram shows ejection fraction of 25% to 30%. B. No evidence of acute congestive heart failure as of 07/08/2018. 9. History of ventricular tachycardia. A. Status post dual-chamber implantable cardioverter defibrillator in 2013. 10. Chronic kidney disease, stage 4. A. GFR 25 as of 07/04/2018. 11. Hypertension. 12. Cigarette abuse. 13. 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 A. Status post lumpectomy in 2006, no evidence of recurrence. 14. Generalized osteoarthritis. 15. Neuropathy of the lower extremities. 16. Constipation. A. Secondary to the pain medication. B. Controlled as of 07/01/2018. 17. Asthmatic bronchitis as of 07/04/2018. A. Improved as of 07/08/2018. PLAN: The patient is doing better. We will continue PT. Continue neb treatments, Levaquin and the tapering dose of prednisone.
[2018-07-08] MEDS: Ezetimibe 10 MG TAB PO SCH (20:11)
[2018-07-08] MEDS: Atorvastatin Calcium 10 MG TAB PO SCH (20:12)
[2018-07-09] MEDS: Guaifenesin DM 100-10/5 ML UDCUP PO PRN ×3 (02:56→21:00)
[2018-07-09] MEDS: Senokot S 8.6-50 MG TAB PO SCH ×2 (08:51→20:50)
[2018-07-09] MEDS: Saccharomyces boulardii 250 MG CAP PO SCH (08:51)
[2018-07-09] MEDS: Ubidecarenone 50 MG CAP PO SCH (08:51)
[2018-07-09] MEDS: Enoxaparin Sodium 30 MG/0.3 ML SYRINGE SC SCH (08:51)
[2018-07-09] MEDS: Furosemide 40 MG TAB PO SCH (08:52)
[2018-07-09] MEDS: predniSONE 20 MG TAB PO SCH (08:52)
[2018-07-09] MEDS: Calcium Carbonate 500 MG TAB PO SCH (08:52)
[2018-07-09] MEDS: Carvedilol 12.5 MG TAB PO SCH ×2 (08:52→17:48)
[2018-07-09] MEDS: guaiFENesin ER 600 MG TAB PO SCH ×2 (08:52→20:50)
[2018-07-09] MEDS: HYDROcodone/Acetaminophen 5/325 mg Tablet PO PRN (13:40)
[2018-07-09] MEDS: Atorvastatin Calcium 10 MG TAB PO SCH (20:49)
[2018-07-09] MEDS: Ezetimibe 10 MG TAB PO SCH (20:49)
[2018-07-10] MEDS: Carvedilol 12.5 MG TAB PO SCH ×2 (09:08→17:24)
[2018-07-10] MEDS: Enoxaparin Sodium 30 MG/0.3 ML SYRINGE SC SCH (09:08)
[2018-07-10] MEDS: Calcium Carbonate 500 MG TAB PO SCH (09:08)
[2018-07-10] MEDS: Saccharomyces boulardii 250 MG CAP PO SCH (09:08)
[2018-07-10] MEDS: Ubidecarenone 50 MG CAP PO SCH (09:08)
[2018-07-10] MEDS: predniSONE 20 MG TAB PO SCH (09:09)
[2018-07-10] MEDS: Senokot S 8.6-50 MG TAB PO SCH ×2 (09:09→20:14)
[2018-07-10] MEDS: guaiFENesin ER 600 MG TAB PO SCH ×2 (09:09→20:13)
[2018-07-10] MEDS: Furosemide 40 MG TAB PO SCH (09:09)
[2018-07-10] MEDS: HYDROcodone/Acetaminophen 5/325 mg Tablet PO PRN ×2 (13:50→20:20)
[2018-07-10] MEDS: Ezetimibe 10 MG TAB PO SCH (20:13)
[2018-07-10] MEDS: Atorvastatin Calcium 10 MG TAB PO SCH (20:14)
[2018-07-11] MEDS: Saccharomyces boulardii 250 MG CAP PO SCH (09:10)
[2018-07-11] MEDS: predniSONE 20 MG TAB PO SCH (09:10)
[2018-07-11] MEDS: guaiFENesin ER 600 MG TAB PO SCH ×2 (09:11→20:17)
[2018-07-11] MEDS: Carvedilol 12.5 MG TAB PO SCH ×2 (09:11→17:05)
[2018-07-11] MEDS: Furosemide 20 MG TAB PO SCH (09:11)
[2018-07-11] MEDS: Calcium Carbonate 500 MG TAB PO SCH (09:11)
[2018-07-11] MEDS: Enoxaparin Sodium 30 MG/0.3 ML SYRINGE SC SCH (09:11)
[2018-07-11] MEDS: Senokot S 8.6-50 MG TAB PO SCH ×2 (09:11→20:17)
[2018-07-11] MEDS: Ubidecarenone 50 MG CAP PO SCH (09:12)
--- NOTE | 2018-07-11 09:16 | PRG ---
DATE OF SERVICE: 07/09/2018 SUBJECTIVE: The patient said she is feeling better. She had a good night. She still has just a lit tle congestion in her chest, but overall she says it is much better. She is having no shortness of b reath. Her hip is feeling better. OBJECTIVE: The patient is alert, appears in no distress. Her vital signs show a temperature of 97.4 , pulse 63, respirations 20, O2 sat 95% on room air, blood pressure 120/57. Her lungs have good pham th sounds. There are no rales. The patient still has some expiratory wheeze that are mild and rhonc hi, particularly on more forceful expirations. Heart, regular rate. Extremities, no edema. ASSESSMENT: 1. Generalized weakness and deconditioning and gait abnormality. A. Secondary to a failed hemiarthroplasty of the left hip requiring removal of hardware and conversi on to a total hip arthroplasty on 06/16/2018. B. Improved as of 07/09/2018. 2. 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 A. Status post removal of hardware and conversion to a total hip arthroplasty by Dr. Kushal Funes on 06/16/2018. B. Improved. Incision healing well. Recheck with Dr. Funes on 07/04/2018 showed she is doing well . Continued improvement as of 07/08/2018. 3. Urinary tract infection. A. Urine culture grew Enterobacter cloacae colony count greater than 100,000 in 06/16/2018. B. Treated initially with IV ceftriaxone, which the organism was sensitive to and then switched to o ral Cipro, which the organism is sensitive to. C. Asymptomatic. Completed the additional 7-day course of oral Cipro as of 06/27/2018. 4. Anemia of chronic illness. A. Exacerbated by blood loss from recent surgery, requiring transfusion with 1 unit of packed red bl ood cells. B Hemoglobin improved to 9 as of 07/04/2018. 5. Urinary retention. A. Required placement of Wisdom catheter on 06/19/2018. B. The patient is voiding well without the use of a Wisdom catheter as of 07/09/2018. 6. History of inability to place Wisdom catheter on 05/07/2018, requiring urologist, Dr. Jensen to p lace the catheter. Complicated by hematuria, which is resolved. 7. Coronary artery disease. A. History of myocardial infarction complicated by cardiac arrest from ventricular tachycardia and p ulmonary edema, requiring placement of stents in the left anterior descending and Implantable cardiov erter defibrillator placement. B. In-stent restenosis in the left anterior descending, required bare metal stent placement by Dr. Arnaldo Baca, music grapher on 05/09/2018. 8. Ischemic cardiomyopathy. A. Echocardiogram shows ejection fraction of 25% to 30%. B. No evidence of acute congestive heart failure as of 07/09/2018. 9. History of ventricular tachycardia. A. Status post dual-chamber implantable cardioverter defibrillator in 2013. 10. Chronic kidney disease, stage 4. A. GFR 25 as of 07/04/2018. 11. Hypertension. 12. Cigarette abuse. 13. 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 A. Status post lumpectomy in 2006, no evidence of recurrence. 14. Generalized osteoarthritis. 15. Neuropathy of the lower extremities. 16. Constipation. A. Secondary to the pain medication. B. Controlled as of 07/01/2018. 17. Asthmatic bronchitis as of 07/04/2018. A. Improved as of 07/09/2018. PLAN: Continue present care. Continue PT and OT.
--- NOTE | 2018-07-11 09:16 | PRG ---
DATE OF SERVICE: 07/11/2018 SUBJECTIVE: The patient said she is doing better with her strength, still coughing a little bit. OBJECTIVE: The patient is standing, walking with her walker. She is alert, appears in no distress. Her vital signs show a temperature of 98.3, pulse 70, respirations 20, O2 sat 95% on room air, blood pressure 110/54. Lungs; there are no rales. The lungs were clear on inspiration, but there is expi ratory wheeze and rhonchi, particularly on forced expiration. The wheezes are less. Heart, regular rate. Extremities, no edema. ASSESSMENT: 1. Generalized weakness and deconditioning and gait abnormality. A. Secondary to a failed hemiarthroplasty of the left hip requiring removal of hardware and conversi on to a total hip arthroplasty on 06/16/2018. B. Improved as of 07/11/2018. 2. 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 A. Status post removal of hardware and conversion to a total hip arthroplasty by Dr. Kushal Funes on 06/16/2018. B. Improved. Incision healing well. Recheck with Dr. Funes on 07/04/2018 showed she is doing well . Continued improvement as of 07/11/2018. 3. Urinary tract infection. A. Urine culture grew Enterobacter cloacae colony count greater than 100,000 in 06/16/2018. B. Treated initially with IV ceftriaxone, which the organism was sensitive to and then switched to o ral Cipro, which the organism is sensitive to. C. Asymptomatic. Completed the additional 7-day course of oral Cipro as of 06/27/2018. 4. Anemia of chronic illness. A. Exacerbated by blood loss from recent surgery, requiring transfusion with 1 unit of packed red bl ood cells. B Hemoglobin improved to 9 as of 07/04/2018. 5. Urinary retention. A. Required placement of Wisdom catheter on 06/19/2018. B. The patient is voiding well without the use of a Wisdom catheter as of 07/01/2018. 6. History of inability to place Wisdom catheter on 05/07/2018, requiring urologist, Dr. Styles to p lace the catheter. Complicated by hematuria, which is resolved. 7. Coronary artery disease. A. History of myocardial infarction complicated by cardiac arrest from ventricular tachycardia and p ulmonary edema, requiring placement of stents in the left anterior descending and Implantable cardiov erter defibrillator placement. B. In-stent restenosis in the left anterior descending, required bare metal stent placement by Dr. Arnaldo Baca, beck tender on 05/09/2018. 8. Ischemic cardiomyopathy. A. Echocardiogram shows ejection fraction of 25% to 30%. B. No evidence of acute congestive heart failure as of 07/11/2018. 9. History of ventricular tachycardia. A. Status post dual-chamber implantable cardioverter defibrillator in 2013. 10. Chronic kidney disease, stage 4. A. GFR 25 as of 07/04/2018. 11. Hypertension. 12. Cigarette abuse. 13. 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 A. Status post lumpectomy in 2006, no evidence of recurrence. 14. Generalized osteoarthritis. 15. Neuropathy of the lower extremities. 16. Constipation. A. Secondary to the pain medication. B. Controlled as of 07/01/2018. 17. Asthmatic bronchitis as of 07/04/2018. A. Improved, but persists with some expiratory wheeze and rhonchi as of 07/11/2018. PLAN: Continue PT. Continue neb treatments. We will the place patient on a Symbicort.
[2018-07-11] MEDS: Ondansetron ODT 4 MG TAB PO PRN (10:54)
[2018-07-11] MEDS ORDERED: Milk Of Magnesia 30 ML UDCUP PO PRN (16:53)
[2018-07-11] MEDS ORDERED: Bisacodyl 10 MG SUPP PR PRN (18:24)
[2018-07-11] MEDS: Mometasone/Formoterol 60 PUFF AER INH SCH (20:15)
[2018-07-11] MEDS: Ezetimibe 10 MG TAB PO SCH (20:17)
[2018-07-11] MEDS: Atorvastatin Calcium 10 MG TAB PO SCH (21:09)
[2018-07-11] MEDS ORDERED: Fleet Enema 133 ML BOT PR PRN (21:35)
[2018-07-11] MEDS: HYDROcodone/Acetaminophen 5/325 mg Tablet PO PRN (21:51)
[2018-07-12 05:47] LABS: #Basophils 0.1 thou/uL (0.0-0.2); #Eosinphils 0.1 thou/uL (0.0-0.7); #Lymphocytes 1.9 thou/uL (1.20-3.40); #Neutrophils 6.4 thou/uL (1.40-6.50); %Eosinophils 1.4 % (0.0-10.0); %Lymphocytes 19.8 % (21.0-51.0); %Monocytes 10.7 % (0.0-10.0); %Neutrophils 67.2 % (42.0-75.0); Hemoglobin 9.3 g/dL (12.0-16.0); Mean Corpuscular HGB CONC 32.7 g/dL (32.0-36.0); Mean Corpuscular Hemoglobin 30.8 pg (27.0-31.0); Mean Corpuscular Volume 94.1 fL (78.0-98.0); Mean Platelet Volume 11.4 fL (7.4-10.4); Platelet Count 187 thou/uL (130-400); RBC Distribution Width 12.6 % (11.5-14.5); Red Blood Cell (RBC) Count 3.02 mill/uL (4.20-5.40); White Blood Cell (WBC) Count 9.5 thou/uL (4.8-10.8)
[2018-07-12 05:57] LABS: Anion Gap 17 mmol/L (10-20); BUN (Urea Nitrogen) 55 mg/dL (9.8-20.1); Calc. Creatinine Clearance 19 mL/min (70-130); Calcium 8.4 mg/dL (7.8-10.44); Carbon Dioxide 20 mmol/L (23-31); Chloride 106 mmol/L (98-107); Estimated GFR-MDRD 19; Glucose 110 mg/dL (83-110); Sodium 139 mmol/L (136-145)
[2018-07-12] MEDS: Proctozone-HC 2.5% Cream 30 GM TUBE PR PRN ×2 (07:44→21:06)
[2018-07-12] MEDS ORDERED: HYDROcodone/Acetaminophen 5/325 mg Tablet PO PRN (08:04)
[2018-07-12] MEDS: Mometasone/Formoterol 60 PUFF AER INH SCH ×2 (08:46→21:01)
[2018-07-12] MEDS: Polyethylene Glycol 3350 17 GM Packet PO SCH (08:47)
[2018-07-12] MEDS: Saccharomyces boulardii 250 MG CAP PO SCH (08:49)
[2018-07-12] MEDS: Senokot S 8.6-50 MG TAB PO SCH ×2 (08:49→21:09)
[2018-07-12] MEDS: Carvedilol 12.5 MG TAB PO SCH ×2 (08:50→17:32)
[2018-07-12] MEDS: predniSONE 10 MG TAB PO SCH (08:50)
[2018-07-12] MEDS: Furosemide 20 MG TAB PO SCH (08:50)
[2018-07-12] MEDS: guaiFENesin ER 600 MG TAB PO SCH ×2 (08:50→21:09)
--- NOTE | 2018-07-12 10:46 | PRG ---
DATE OF SERVICE: 07/12/2018 SUBJECTIVE: The patient said that she feels much better this morning. Last evening and yesterday af ternoon, she had a lot of trouble with the need to have a bowel movement and just could not. She had been several days her Senokot S was doubled to 2 b.i.d. She was given milk of magnesia and a Dulcol ax suppository. Enemas was ordered, but she did not have to use this. She said last evening, finall y, she had a very large bowel movement and feels much better. Her breathing is doing better. She is doing better with her therapy. OBJECTIVE: The patient is sitting up in a chair, is alert, talkative, appears in no distress. Her v ital signs show a temperature 98.2, pulse 61, respirations 20, O2 sat 96% on room air, blood pressure 137/65. Lungs are clear, but on forced expiration, there is still rhonchi and some wheeze present. Overall, though the lungs were sounding gradually better. Heart, regular rate. Extremities, no cecilia ma. ASSESSMENT: 1. Generalized weakness and deconditioning and gait abnormality. A. Secondary to a failed hemiarthroplasty of the left hip requiring removal of hardware and conversi on to a total hip arthroplasty on 06/16/2018. B. Improved as of 07/12/2018. 2. 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 A. Status post removal of hardware and conversion to a total hip arthroplasty by Dr. Kushal Funes on 06/16/2018. B. Improved. Incision healing well. Recheck with Dr. Funes on 07/04/2018 showed she is doing well . Continued improvement as of 07/12/2018. 3. Urinary tract infection. A. Urine culture grew Enterobacter cloacae colony count greater than 100,000 in 06/16/2018. B. Treated initially with IV ceftriaxone, which the organism was sensitive to and then switched to o ral Cipro, which the organism is sensitive to. C. Asymptomatic. Completed the additional 7-day course of oral Cipro as of 06/27/2018. 4. Anemia of chronic illness. A. Exacerbated by blood loss from recent surgery, requiring transfusion with 1 unit of packed red bl ood cells. B Hemoglobin improved to 9 as of 07/04/2018. 5. Urinary retention. A. Required placement of Wisdom catheter on 06/19/2018. B. The patient is voiding well without the use of a Wisdom catheter as of 07/01/2018. 6. History of inability to place Wisdom catheter on 05/07/2018, requiring urologist, Dr. Styles to p lace the catheter. Complicated by hematuria, which is resolved. 7. Coronary artery disease. A. History of myocardial infarction complicated by cardiac arrest from ventricular tachycardia and p ulmonary edema, requiring placement of stents in the left anterior descending and Implantable cardiov erter defibrillator placement. B. In-stent restenosis in the left anterior descending, required bare metal stent placement by Dr. Arnaldo Baca, blast furnace checker on 05/09/2018. 8. Ischemic cardiomyopathy. A. Echocardiogram shows ejection fraction of 25% to 30%. B. No evidence of acute congestive heart failure as of 07/12/2018. 9. History of ventricular tachycardia. A. Status post dual-chamber implantable cardioverter defibrillator in 2013. 10. Chronic kidney disease, stage 4. A. GFR 25 as of 07/04/2018. 11. Hypertension. A. Controlled as of 07/12/2018. 12. Cigarette abuse. A. Patient has been off of the cigarettes since her surgery on 06/16/2018. 13. 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 A. Status post lumpectomy in 2006, no evidence of recurrence. 14. Generalized osteoarthritis. 15. Neuropathy of the lower extremities. 16. Constipation. A. Had not had bowel movement for several days, eventually moved with increase in her bowel program as on the evening of 07/11/2018. B. Improved as of 07/12/2018. 17. Asthmatic bronchitis as of 07/04/2018. A. Improved, but persists with some expiratory wheeze and rhonchi as of 07/12/2018. PLAN: We will continue the Senokot-S 2 b.i.d. and add MiraLax daily. Continue PT. Continue neb isabel atments. The patient is finishing her prednisone taper. I have stopped her calcium, which was contr ibuting to her constipation. The patient's analgesic, the hydrocodone, is contributing to her consti pation. I have asked her to try to reduce this preferentially and use the Tylenol. We will reduce t he interval, but this also could be given that is the hydrocodone. The patient's BUN has risen to 55 and creatinine to 2.4. We will reduce her furosemide, she receives 40 mg 5 days a week and 20 mg t.i.d. We will reduce this to just 20 mg daily, and encourage her to t sonal oral liquids more. We will recheck her basic metabolic panel in the morning.
[2018-07-12 11:36] VITALS: BMI 27.6
[2018-07-12] MEDS: Diabetic Tussin 200 MG/10 ML UDCUP PO PRN ×2 (13:22→19:01)
[2018-07-12] MEDS: Atorvastatin Calcium 10 MG TAB PO SCH (21:07)
[2018-07-12] MEDS: Ezetimibe 10 MG TAB PO SCH (21:09)
[2018-07-13 05:44] LABS: Anion Gap 11 mmol/L (10-20); BUN (Urea Nitrogen) 49 mg/dL (9.8-20.1); Calc. Creatinine Clearance 21 mL/min (70-130); Calcium 7.8 mg/dL (7.8-10.44); Carbon Dioxide 22 mmol/L (23-31); Chloride 109 mmol/L (98-107); Estimated GFR-MDRD 21; Glucose 97 mg/dL (83-110); Potassium 4.2 mmol/L (3.5-5.1); Sodium 138 mmol/L (136-145)
[2018-07-13] MEDS: Mometasone/Formoterol 60 PUFF AER INH SCH ×3 (06:03→20:09)
[2018-07-13] MEDS: Ondansetron ODT 4 MG TAB PO PRN (06:08)
[2018-07-13] MEDS: Diabetic Tussin 200 MG/10 ML UDCUP PO PRN ×3 (08:52→22:58)
[2018-07-13] MEDS: Polyethylene Glycol 3350 17 GM Packet PO SCH (08:52)
[2018-07-13] MEDS: guaiFENesin ER 600 MG TAB PO SCH ×2 (08:53→20:13)
[2018-07-13] MEDS: Carvedilol 12.5 MG TAB PO SCH ×2 (08:54→17:34)
[2018-07-13] MEDS: Senokot S 8.6-50 MG TAB PO SCH ×2 (08:54→20:13)
[2018-07-13] MEDS: Saccharomyces boulardii 250 MG CAP PO SCH (08:54)
[2018-07-13] MEDS: predniSONE 10 MG TAB PO SCH (08:54)
[2018-07-13] MEDS: Furosemide 20 MG TAB PO SCH (08:54)
--- NOTE | 2018-07-13 10:10 | PRG ---
DATE OF SERVICE: 07/13/2018 SUBJECTIVE: The patient said she is feeling better this morning. Her bowels are working just fine. She has not had any more trouble with constipation. The patient said she is breathing better, but s till has some roughness and coughing spell, but not as severe. Nurses report that she had a little c oughing spell, spit up some phlegm has caused just a little bit of vomiting with this, but has had no recurrence. OBJECTIVE: GENERAL: The patient is sitting in her chair. She just returned from physical therapy. She looks e xcellent. She appears in no distress. She is very comfortable. VITAL SIGNS: Her temperature is 97.5, pulse 65, respirations 18, O2 sat 93% on room air, blood press ure 136/62. LUNGS: Clear on inspiration. On some mild forced expiration, there is still some rhonchi present. I did not hear the wheezing is readily, but on more forceful respiration, there are some. Overall, t he lungs sound better. There are no rales. HEART: Regular rate. EXTREMITIES: No edema. LABORATORY DATA: Her lab shows a sodium of 138, potassium 4.2. Her BUN has dropped to 49, creatinin e to 2.19 and the GFR has come up to 21. ASSESSMENT: 1. Generalized weakness and deconditioning and gait abnormality. A. Secondary to a failed hemiarthroplasty of the left hip requiring removal of hardware and conversi on to a total hip arthroplasty on 06/16/2018. B. Improved as of 07/13/2018. 2. 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 A. Status post removal of hardware and conversion to a total hip arthroplasty by Dr. Kushal Funes on 06/16/2018. B. Improved. Incision healing well. Recheck with Dr. Funes on 07/04/2018 showed she is doing well . Continued improvement as of 07/13/2018. 3. Urinary tract infection. A. Urine culture grew Enterobacter cloacae colony count greater than 100,000 in 06/16/2018. B. Treated initially with IV ceftriaxone, which the organism was sensitive to and then switched to o ral Cipro, which the organism is sensitive to. C. Asymptomatic. Completed the additional 7-day course of oral Cipro as of 06/27/2018. 4. Anemia of chronic illness. A. Exacerbated by blood loss from recent surgery, requiring transfusion with 1 unit of packed red bl ood cells. B Hemoglobin improved to 9 as of 07/04/2018. 5. Urinary retention. A. Required placement of Wisdom catheter on 06/19/2018. B. The patient is voiding well without the use of a Wisdom catheter as of 07/01/2018. 6. History of inability to place Wisdom catheter on 05/07/2018, requiring urologist, Dr. Styles to p lace the catheter. Complicated by hematuria, which is resolved. 7. Coronary artery disease. A. History of myocardial infarction complicated by cardiac arrest from ventricular tachycardia and p ulmonary edema, requiring placement of stents in the left anterior descending and Implantable cardiov erter defibrillator placement. B. In-stent restenosis in the left anterior descending, required bare metal stent placement by Dr. Arnaldo Baca, survey questionnaire designer on 05/09/2018. 8. Ischemic cardiomyopathy. A. Echocardiogram shows ejection fraction of 25% to 30%. B. No evidence of acute congestive heart failure as of 07/13/2018. 9. History of ventricular tachycardia. A. Status post dual-chamber implantable cardioverter defibrillator in 2013. 10. Chronic kidney disease, stage 4. A. GFR 25 as of 07/04/2018. B. GFR has improved from 19 on 07/12/2018 to 21 after the furosemide was decreased and fluid intake liberalized as of 07/13/2018. 11. Hypertension. A. Controlled as of 07/12/2018. 12. Cigarette abuse. A. Patient has been off of the cigarettes since her surgery on 06/16/2018. 13. 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 A. Status post lumpectomy in 2006, no evidence of recurrence. 14. Generalized osteoarthritis. 15. Neuropathy of the lower extremities. 16. Constipation. A. Had not had bowel movement for several days, eventually moved with increase in her bowel program as on the evening of 07/11/2018. B. Improved as of 07/12/2018. 17. Asthmatic bronchitis/chronic obstructive pulmonary disease with acute exacerbation, onset, 07/04. A. Improving, but still has some expiratory rhonchi and mild wheeze on forced expiration as of 07/13. PLAN: Overall, the patient is doing better, feel like that her lungs are better, but this will be a very slow resolution. We will continue present care. Her renal function is also better with reducti on in the furosemide and the liberalization of the fluids. We will recheck renal function and blood count in 2 days.
[2018-07-13] MEDS: Atorvastatin Calcium 10 MG TAB PO SCH (20:12)
[2018-07-13] MEDS: Ezetimibe 10 MG TAB PO SCH (20:14)
[2018-07-14] MEDS: Mometasone/Formoterol 60 PUFF AER INH SCH ×2 (08:58→20:22)
[2018-07-14] MEDS: Diabetic Tussin 200 MG/10 ML UDCUP PO PRN ×2 (08:58→14:43)
[2018-07-14] MEDS: Carvedilol 12.5 MG TAB PO SCH ×2 (08:59→17:40)
[2018-07-14] MEDS: predniSONE 10 MG TAB PO SCH (08:59)
[2018-07-14] MEDS: Senokot S 8.6-50 MG TAB PO SCH ×2 (09:00→20:24)
[2018-07-14] MEDS: Furosemide 20 MG TAB PO SCH (09:00)
[2018-07-14] MEDS: guaiFENesin ER 600 MG TAB PO SCH ×2 (09:00→20:24)
[2018-07-14] MEDS: Polyethylene Glycol 3350 17 GM Packet PO SCH (09:00)
[2018-07-14] MEDS: Saccharomyces boulardii 250 MG CAP PO SCH (09:00)
--- NOTE | 2018-07-14 09:18 | PRG ---
DATE OF SERVICE: 07/14/2018 SUBJECTIVE: The patient says she is doing better. Her bowels are moving good. She is doing better with her exercise. She is today working on a [employer] that works her arms and legs, which she enjoys. Her breathing has improved. OBJECTIVE: The patient is alert, smiling, appears very comfortable and in no distress. Temp 98, pul se 69, respirations 20, O2 sat 98% on room air, blood pressure 152/72. Her lungs are clear except th ere is still some coarse expiratory breath sounds on forced expiration, but overall the lungs continu ed to improve. Heart, regular rate. Extremities, no edema. ASSESSMENT: 1. Generalized weakness and deconditioning and gait abnormality. A. Secondary to a failed hemiarthroplasty of the left hip requiring removal of hardware and conversi on to a total hip arthroplasty on 06/16/2018. B. Improved as of 07/14/2018. 2. 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 A. Status post removal of hardware and conversion to a total hip arthroplasty by Dr. Kushal Funes on 06/16/2018. B. Improved. Incision healing well. Recheck with Dr. Funes on 07/04/2018 showed she is doing well . Continued improvement as of 07/14/2018. 3. Urinary tract infection. A. Urine culture grew Enterobacter cloacae colony count greater than 100,000 in 06/16/2018. B. Treated initially with IV ceftriaxone, which the organism was sensitive to and then switched to o ral Cipro, which the organism is sensitive to. C. Asymptomatic. Completed the additional 7-day course of oral Cipro as of 06/27/2018. 4. Anemia of chronic illness. A. Exacerbated by blood loss from recent surgery, requiring transfusion with 1 unit of packed red bl ood cells. B Hemoglobin improved to 9 as of 07/04/2018. 5. Urinary retention. A. Required placement of Wisdom catheter on 06/19/2018. B. The patient is voiding well without the use of a Wisdom catheter as of 07/14/2018. 6. History of inability to place Wisdom catheter on 05/07/2018, requiring urologist, Dr. Styles to p lace the catheter. Complicated by hematuria, which is resolved. 7. Coronary artery disease. A. History of myocardial infarction complicated by cardiac arrest from ventricular tachycardia and p ulmonary edema, requiring placement of stents in the left anterior descending and Implantable cardiov erter defibrillator placement. B. In-stent restenosis in the left anterior descending, required bare metal stent placement by Dr. Arnaldo Baca, jig filler on 05/09/2018. 8. Ischemic cardiomyopathy. A. Echocardiogram shows ejection fraction of 25% to 30%. B. No evidence of acute congestive heart failure as of 07/13/2018. 9. History of ventricular tachycardia. A. Status post dual-chamber implantable cardioverter defibrillator in 2013. 10. Chronic kidney disease, stage 4. A. GFR 25 as of 07/04/2018. B. GFR has improved from 19 on 07/12/2018 to 21 after the furosemide was decreased and fluid intake liberalized as of 07/13/2018. 11. Hypertension. A. Controlled as of 07/14/2018. 12. Cigarette abuse. A. Patient has been off of the cigarettes since her surgery on 06/16/2018. 13. 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 A. Status post lumpectomy in 2006, no evidence of recurrence. 14. Generalized osteoarthritis. 15. Neuropathy of the lower extremities. 16. Constipation. A. Had not had bowel movement for several days, eventually moved with increase in her bowel program as on the evening of 07/11/2018. B. Controlled as of 07/14/2018. 17. Asthmatic bronchitis/chronic obstructive pulmonary disease with acute exacerbation, onset, 07/04. A. Improving as of 07/14/2018. PLAN: Continue present care. We will continue PT and OT. Il feel like 1 more week will certainly b enefit her. We will target a possibility of her going home next Wednesday07/22/2018. We will recheck renal function tomorrow to ensure that the renal function is improving.
[2018-07-14] MEDS: Atorvastatin Calcium 10 MG TAB PO SCH (20:23)
[2018-07-14] MEDS: Ezetimibe 10 MG TAB PO SCH (20:24)
[2018-07-14] MEDS: HYDROcodone/Acetaminophen 5/325 mg Tablet PO PRN (20:26)
[2018-07-15] MEDS ORDERED: Senokot S 8.6-50 MG TAB ONE (09:00)
[2018-07-15] MEDS ORDERED: Saccharomyces boulardii 250 MG CAP ONE (09:00)
[2018-07-15] MEDS ORDERED: Furosemide 20 MG TAB ONE (09:00)
[2018-07-15] MEDS ORDERED: guaiFENesin ER 600 MG TAB ONE (09:00)
[2018-07-15] MEDS ORDERED: Carvedilol 12.5 MG TAB ONE (09:00)
[2018-07-15] MEDS ORDERED: Polyethylene Glycol 3350 17 GM Packet ONE (09:00)
[2018-07-15] MEDS: Mometasone/Formoterol 60 PUFF AER INH SCH ×2 (12:08→20:58)
[2018-07-15] MEDS: Furosemide 20 MG TAB PO SCH (12:09)
[2018-07-15] MEDS: Carvedilol 12.5 MG TAB PO SCH ×2 (12:09→17:56)
[2018-07-15] MEDS: Saccharomyces boulardii 250 MG CAP PO SCH (12:10)
[2018-07-15] MEDS: Polyethylene Glycol 3350 17 GM Packet PO SCH (12:10)
[2018-07-15] MEDS: Senokot S 8.6-50 MG TAB PO SCH ×2 (12:10→21:00)
[2018-07-15] MEDS: guaiFENesin ER 600 MG TAB PO SCH ×2 (12:10→21:00)
[2018-07-15 12:17] LABS: Anion Gap 13 mmol/L (10-20); BUN (Urea Nitrogen) 39 mg/dL (9.8-20.1); Calc. Creatinine Clearance 22 mL/min (70-130); Calcium 7.9 mg/dL (7.8-10.44); Carbon Dioxide 19 mmol/L (23-31); Chloride 112 mmol/L (98-107); Estimated GFR-MDRD 22; Glucose 92 mg/dL (83-110); Potassium 4.2 mmol/L (3.5-5.1); Sodium 140 mmol/L (136-145)
[2018-07-15 13:17] LABS: Hemoglobin 8.8 g/dL (12.0-16.0); Mean Corpuscular Hemoglobin 30.5 pg (27.0-31.0); Mean Corpuscular Volume 92.6 fL (78.0-98.0); Red Blood Cell (RBC) Count 2.89 mill/uL (4.20-5.40); White Blood Cell (WBC) Count 7.4 thou/uL (4.8-10.8)
[2018-07-15 13:18] LABS: #Basophils 0.1 thou/uL (0.0-0.2); #Eosinphils 0.3 thou/uL (0.0-0.7); #Lymphocytes 2.2 thou/uL (1.20-3.40); #Monocytes 0.8 thou/uL (0.11-0.59); #Neutrophils 4.1 thou/uL (1.40-6.50); %Basophils 0.9 % (0.0-1.0); %Eosinophils 3.5 % (0.0-10.0); %Lymphocytes 29.2 % (21.0-51.0); %Neutrophils 55.4 % (42.0-75.0); Mean Platelet Volume 10.4 fL (7.4-10.4); Platelet Count 146 thou/uL (130-400); RBC Distribution Width 12.5 % (11.5-14.5)
--- NOTE | 2018-07-15 14:52 | PRG ---
DATE OF SERVICE: 07/15/2018 SUBJECTIVE: The patient said she is feeling good. She said her breathing is good. She is making pr ogress with therapy. Occupational therapist is working more with her for showering and for activitie s, she will need to be able to perform at home. The patient said she had a large bowel movement last night, but none since her stomach is not hurting her. OBJECTIVE: The patient is sitting up in a bedside chair, is alert, appears very comfortable and in n o distress. Her vital signs show a temperature of 97.8, pulse of 69, respirations 20, O2 sat 96% on room air, blood pressure 119/59. Lungs are clear with good breath sounds, but there are still some r honchi present on forced expiration. Overall, though the lungs sound much better. Heart, regular ra te. Extremities, no edema. ASSESSMENT: 1. Generalized weakness and deconditioning and gait abnormality. A. Secondary to a failed hemiarthroplasty of the left hip requiring removal of hardware and conversi on to a total hip arthroplasty on 06/16/2018. B. Improved as of 07/15/2018. 2. 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 A. Status post removal of hardware and conversion to a total hip arthroplasty by Dr. Kushal Funes on 06/16/2018. B. Improved. Incision healing well. Recheck with Dr. Funes on 07/04/2018 showed she is doing well . Continued improvement as of 07/15/2018. 3. Urinary tract infection. A. Urine culture grew Enterobacter cloacae colony count greater than 100,000 in 06/16/2018. B. Treated initially with IV ceftriaxone, which the organism was sensitive to and then switched to o ral Cipro, which the organism is sensitive to. C. Asymptomatic. Completed the additional 7-day course of oral Cipro as of 06/27/2018. 4. Anemia of chronic illness. A. Exacerbated by blood loss from recent surgery, requiring transfusion with 1 unit of packed red bl ood cells. B Hemoglobin improved to 9 as of 07/04/2018. 5. Urinary retention. A. Required placement of Wisdom catheter on 06/19/2018. B. The patient is voiding well without the use of a Wisdom catheter as of 07/14/2018. 6. History of inability to place Wisdom catheter on 05/07/2018, requiring urologist, Dr. Styles to p lace the catheter. Complicated by hematuria, which is resolved. 7. Coronary artery disease. A. History of myocardial infarction complicated by cardiac arrest from ventricular tachycardia and p ulmonary edema, requiring placement of stents in the left anterior descending and Implantable cardiov erter defibrillator placement. B. In-stent restenosis in the left anterior descending, required bare metal stent placement by Dr. Arnaldo Baca, combat rifle crewmember on 05/09/2018. 8. Ischemic cardiomyopathy. A. Echocardiogram shows ejection fraction of 25% to 30%. B. No evidence of acute congestive heart failure as of 07/14/2018. 9. History of ventricular tachycardia. A. Status post dual-chamber implantable cardioverter defibrillator in 2013. 10. Chronic kidney disease, stage 4. A. GFR 25 as of 07/04/2018. B. GFR has improved from 19 on 07/12/2018 to 21 after the furosemide was decreased and fluid intake liberalized as of 07/13/2018. 11. Hypertension. A. Controlled as of 07/15/2018. 12. Cigarette abuse. A. Patient has been off of the cigarettes since her surgery on 06/16/2018. 13. 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 A. Status post lumpectomy in 2006, no evidence of recurrence. 14. Generalized osteoarthritis. 15. Neuropathy of the lower extremities. 16. Constipation. A. Had not had bowel movement for several days, eventually moved with increase in her bowel program as on the evening of 07/11/2018. B. Controlled as of 07/15/2018. 17. Asthmatic bronchitis/chronic obstructive pulmonary disease with acute exacerbation, onset, 07/04. A. Improving as of 07/15/2018. PLAN: Continue PT. Continue OT. We will recheck metabolic panel in the morning and CBC.
[2018-07-15] MEDS: Atorvastatin Calcium 10 MG TAB PO SCH (20:59)
[2018-07-15] MEDS: Ezetimibe 10 MG TAB PO SCH (21:00)
[2018-07-16 05:29] LABS: #Basophils 0.1 thou/uL (0.0-0.2); #Eosinphils 0.4 thou/uL (0.0-0.7); #Lymphocytes 2.1 thou/uL (1.20-3.40); #Monocytes 0.8 thou/uL (0.11-0.59); #Neutrophils 4.5 thou/uL (1.40-6.50); %Basophils 1.2 % (0.0-1.0); %Eosinophils 4.7 % (0.0-10.0); %Lymphocytes 26.2 % (21.0-51.0); %Monocytes 10.6 % (0.0-10.0); %Neutrophils 57.4 % (42.0-75.0); Hemoglobin 8.9 g/dL (12.0-16.0); Mean Corpuscular HGB CONC 33.6 g/dL (32.0-36.0); Mean Corpuscular Hemoglobin 31.4 pg (27.0-31.0); Mean Corpuscular Volume 93.5 fL (78.0-98.0); Mean Platelet Volume 10.9 fL (7.4-10.4); Platelet Count 143 thou/uL (130-400); RBC Distribution Width 12.4 % (11.5-14.5); Red Blood Cell (RBC) Count 2.83 mill/uL (4.20-5.40); White Blood Cell (WBC) Count 7.8 thou/uL (4.8-10.8)
[2018-07-16 05:40] LABS: Anion Gap 12 mmol/L (10-20); BUN (Urea Nitrogen) 36 mg/dL (9.8-20.1); Calc. Creatinine Clearance 24 mL/min (70-130); Calcium 7.8 mg/dL (7.8-10.44); Carbon Dioxide 18 mmol/L (23-31); Chloride 114 mmol/L (98-107); Estimated GFR-MDRD 25; Glucose 96 mg/dL (83-110); Potassium 4.4 mmol/L (3.5-5.1); Sodium 140 mmol/L (136-145)
[2018-07-16] MEDS: Mometasone/Formoterol 60 PUFF AER INH SCH ×2 (08:31→20:58)
[2018-07-16] MEDS: Furosemide 20 MG TAB PO SCH (08:32)
[2018-07-16] MEDS: Saccharomyces boulardii 250 MG CAP PO SCH (08:32)
[2018-07-16] MEDS: Carvedilol 12.5 MG TAB PO SCH ×2 (08:32→17:13)
[2018-07-16] MEDS: guaiFENesin ER 600 MG TAB PO SCH ×2 (08:32→21:01)
[2018-07-16] MEDS: Polyethylene Glycol 3350 17 GM Packet PO SCH (08:33)
[2018-07-16] MEDS: Senokot S 8.6-50 MG TAB PO SCH ×2 (08:33→21:01)
[2018-07-16] MEDS: Atorvastatin Calcium 10 MG TAB PO SCH (21:00)
[2018-07-16] MEDS: Ezetimibe 10 MG TAB PO SCH (21:01)
[2018-07-17] MEDS: Mometasone/Formoterol 60 PUFF AER INH SCH ×2 (06:09→17:53)
[2018-07-17] MEDS: Furosemide 20 MG TAB PO SCH (08:43)
[2018-07-17] MEDS: guaiFENesin ER 600 MG TAB PO SCH ×2 (08:43→20:01)
[2018-07-17] MEDS: Senokot S 8.6-50 MG TAB PO SCH ×2 (08:43→20:01)
[2018-07-17] MEDS: Saccharomyces boulardii 250 MG CAP PO SCH (08:44)
[2018-07-17] MEDS: Carvedilol 12.5 MG TAB PO SCH ×2 (08:44→17:49)
[2018-07-17] MEDS: Polyethylene Glycol 3350 17 GM Packet PO SCH (08:44)
[2018-07-17] MEDS: Ondansetron ODT 4 MG TAB PO PRN (12:25)
[2018-07-17] MEDS: HYDROcodone/Acetaminophen 5/325 mg Tablet PO PRN (19:50)
[2018-07-17] MEDS: Atorvastatin Calcium 10 MG TAB PO SCH (19:59)
[2018-07-17] MEDS: Ezetimibe 10 MG TAB PO SCH (20:01)
[2018-07-18] MEDS: Mometasone/Formoterol 60 PUFF AER INH SCH ×2 (08:44→20:57)
[2018-07-18] MEDS: Carvedilol 12.5 MG TAB PO SCH ×2 (08:44→17:24)
[2018-07-18] MEDS: Saccharomyces boulardii 250 MG CAP PO SCH (08:46)
[2018-07-18] MEDS: Furosemide 20 MG TAB PO SCH (08:46)
[2018-07-18] MEDS: guaiFENesin ER 600 MG TAB PO SCH ×2 (08:46→21:01)
[2018-07-18] MEDS: Polyethylene Glycol 3350 17 GM Packet PO SCH (08:46)
[2018-07-18] MEDS: Senokot S 8.6-50 MG TAB PO SCH ×2 (08:46→21:03)
--- NOTE | 2018-07-18 09:44 | PRG ---
DATE OF SERVICE: 07/18/2018 SUBJECTIVE: The patient said she is doing a lot better. Her breathing is good. She is not having a ny problem with diarrhea or constipation. Physical therapist says she is doing very well. She is wa lking good, transferring independently. OBJECTIVE: The patient is sitting up on the Nu[employer] working her arms and legs. She is talkative, cheng ears very comfortable and in no distress. Her temperature is 97.9, pulse 64, respirations 20, O2 sat uration 98%, blood pressure 142/67. Lungs are clear. On forced expiration there is a very slight co arseness, but overall the lungs sound much better. Heart, regular rate. Extremities: No edema. Her lab from 07/16/2018 shows a sodium 140, potassium of 4.4, BUN has dropped to 36. Her baseline cr eatinine 1.91, GFR is up to 25, pretty much her baseline. Her H&H is 8.9 and 26.5, platelet count 14 3. ASSESSMENT: 1. Generalized weakness and deconditioning and gait abnormality. A. Secondary to a failed hemiarthroplasty of the left hip requiring removal of hardware and conversi on to a total hip arthroplasty on 06/16/2018. B. Improved as of 07/18/2018. 2. 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 A. Status post removal of hardware and conversion to a total hip arthroplasty by Dr. Kushal Funes on 06/16/2018. B. Improved. Incision healing well. Recheck with Dr. Funes on 07/04/2018 showed she is doing well . Continued improvement as of 07/18/2018. 3. Urinary tract infection. A. Urine culture grew Enterobacter cloacae colony count greater than 100,000 in 06/16/2018. B. Treated initially with IV ceftriaxone, which the organism was sensitive to and then switched to o ral Cipro, which the organism is sensitive to. C. Asymptomatic. Completed the additional 7-day course of oral Cipro as of 06/27/2018. 4. Anemia of chronic illness. A. Exacerbated by blood loss from recent surgery, requiring transfusion with 1 unit of packed red bl ood cells. B. Hemoglobin stable at 8.9 as of 07/16/2018. 5. Urinary retention. A. Required placement of Wisdom catheter on 06/19/2018. B. The patient is voiding well without the use of a Wisdom catheter as of 07/14/2018. 6. History of inability to place Wisdom catheter on 05/07/2018, requiring urologist, Dr. Styles to p lace the catheter. Complicated by hematuria, which is resolved. 7. Coronary artery disease. A. History of myocardial infarction complicated by cardiac arrest from ventricular tachycardia and p ulmonary edema, requiring placement of stents in the left anterior descending and Implantable cardiov erter defibrillator placement. B. In-stent restenosis in the left anterior descending, required bare metal stent placement by Dr. Arnaldo Baca, rn advice on 05/09/2018. 8. Ischemic cardiomyopathy. A. Echocardiogram shows ejection fraction of 25% to 30%. B. No evidence of acute congestive heart failure as of 07/18/2018. 9. History of ventricular tachycardia. A. Status post dual-chamber implantable cardioverter defibrillator in 2013. 10. Chronic kidney disease, stage 4. A. GFR 25 as of 07/04/2018. B. GFR up to 25, her baseline as of 07/16/2018. 11. Hypertension. A. Controlled as of 07/18/2018. 12. Cigarette abuse. A. Patient has been off of the cigarettes since her surgery on 06/16/2018. 13. 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 A. Status post lumpectomy in 2006, no evidence of recurrence. 14. Generalized osteoarthritis. 15. Neuropathy of the lower extremities. 16. Constipation. A. Had not had bowel movement for several days, eventually moved with increase in her bowel program as on the evening of 07/11/2018. B. Controlled as of 07/15/2018. 17. Asthmatic bronchitis/chronic obstructive pulmonary disease with acute exacerbation, onset, 07/04. A. Resolving as of 07/18/2018. PLAN: Continue present care. Continue PT, OT. Anticipate the patient being discharged on Wednesday07/20/2018. This will give her time to make other preparations at home. We will plan for home [facility] to see her and arrange for in-home PT and OT.
--- NOTE | 2018-07-18 09:47 | PRG ---
DATE OF SERVICE: 07/16/2018 SUBJECTIVE: The patient said she is doing good. She slept good last night. Continues to progress w ith her therapy. Still has a little cough, but overall breathing doing good. OBJECTIVE: The patient lying in bed, alert, appears comfortable, in no distress. Her temperature is 97.9, pulse 68, respirations 18, O2 sat 99% on room air, blood pressure 110/53. Lungs are clear, bu t have some rhonchi on expiration. There are no rales. Heart, regular rate. Extremities, no edema. ASSESSMENT: 1. Generalized weakness and deconditioning and gait abnormality. A. Secondary to a failed hemiarthroplasty of the left hip requiring removal of hardware and conversi on to a total hip arthroplasty on 06/16/2018. B. Improved as of 07/16/2018. 2. 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 A. Status post removal of hardware and conversion to a total hip arthroplasty by Dr. Kushal Funes on 06/16/2018. B. Improved. Incision healing well. Recheck with Dr. Funes on 07/04/2018 showed she is doing well . Continued improvement as of 07/16/2018. 3. Urinary tract infection. A. Urine culture grew Enterobacter cloacae colony count greater than 100,000 in 06/16/2018. B. Treated initially with IV ceftriaxone, which the organism was sensitive to and then switched to o ral Cipro, which the organism is sensitive to. C. Asymptomatic. Completed the additional 7-day course of oral Cipro as of 06/27/2018. 4. Anemia of chronic illness. A. Exacerbated by blood loss from recent surgery, requiring transfusion with 1 unit of packed red bl ood cells. B Hemoglobin improved to 9 as of 07/04/2018. 5. Urinary retention. A. Required placement of Wisdom catheter on 06/19/2018. B. The patient is voiding well without the use of a Wisdom catheter as of 07/16/2018. 6. History of inability to place Iwsdom catheter on 05/07/2018, requiring urologist, Dr. Styles to p lace the catheter. Complicated by hematuria, which is resolved. 7. Coronary artery disease. A. History of myocardial infarction complicated by cardiac arrest from ventricular tachycardia and p ulmonary edema, requiring placement of stents in the left anterior descending and Implantable cardiov erter defibrillator placement. B. In-stent restenosis in the left anterior descending, required bare metal stent placement by Dr. Arnaldo Baca, director food safety on 05/09/2018. 8. Ischemic cardiomyopathy. A. Echocardiogram shows ejection fraction of 25% to 30%. B. No evidence of acute congestive heart failure as of 07/16/2018. 9. History of ventricular tachycardia. A. Status post dual-chamber implantable cardioverter defibrillator in 2013. 10. Chronic kidney disease, stage 4. A. GFR 25 as of 07/04/2018. B. GFR has improved from 19 on 07/12/2018 to 21 after the furosemide was decreased and fluid intake liberalized as of 07/13/2018. 11. Hypertension. A. Controlled as of 07/15/2018. 12. Cigarette abuse. A. Patient has been off of the cigarettes since her surgery on 06/16/2018. 13. 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 A. Status post lumpectomy in 2006, no evidence of recurrence. 14. Generalized osteoarthritis. 15. Neuropathy of the lower extremities. 16. Constipation. A. Had not had bowel movement for several days, eventually moved with increase in her bowel program as on the evening of 07/11/2018. B. Controlled as of 07/16/2018. 17. Asthmatic bronchitis/chronic obstructive pulmonary disease with acute exacerbation, onset, 07/04. A. Improving as of 07/16/2018. PLAN: Continue present care. Continue PT/OT.
[2018-07-18] MEDS: Atorvastatin Calcium 10 MG TAB PO SCH (20:59)
[2018-07-18] MEDS: Ezetimibe 10 MG TAB PO SCH (21:02)
[2018-07-19] MEDS: Mometasone/Formoterol 60 PUFF AER INH SCH ×2 (06:10→20:41)
[2018-07-19] MEDS: Furosemide 20 MG TAB PO SCH (09:39)
[2018-07-19] MEDS: Carvedilol 12.5 MG TAB PO SCH ×2 (09:39→17:07)
[2018-07-19] MEDS: Saccharomyces boulardii 250 MG CAP PO SCH (09:40)
[2018-07-19] MEDS: guaiFENesin ER 600 MG TAB PO SCH ×2 (09:40→20:41)
[2018-07-19] MEDS: Polyethylene Glycol 3350 17 GM Packet PO SCH (09:41)
[2018-07-19] MEDS: Senokot S 8.6-50 MG TAB PO SCH ×2 (09:41→20:42)
[2018-07-19] MEDS: HYDROcodone/Acetaminophen 5/325 mg Tablet PO PRN (10:15)
--- NOTE | 2018-07-19 14:26 | PRG ---
DATE OF SERVICE: 07/19/2018 SUBJECTIVE: The patient said she is doing very well. She has already been up for her exercise, has had breakfast and her shower. She is making arrangements at home for her discharge tomorrow. OBJECTIVE: The patient is sitting up in chair, alert. Appears very comfortable in no distress. Her temperature 97.3, pulse 75, respirations 18, O2 sat 97% on room air, blood pressure 144/74. Lungs a re clear. Heart, regular rate. Extremities, no edema. ASSESSMENT: 1. Generalized weakness and deconditioning and gait abnormality. A. Secondary to a failed hemiarthroplasty of the left hip requiring removal of hardware and conversi on to a total hip arthroplasty on 06/16/2018. B. Improved as of 07/19/2018. 2. 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 A. Status post removal of hardware and conversion to a total hip arthroplasty by Dr. Kushal Funes on 06/16/2018. B. Improved. Incision healing well. Recheck with Dr. Funes on 07/04/2018 showed she is doing well . Continued improvement as of 07/19/2018. 3. Urinary tract infection. A. Urine culture grew Enterobacter cloacae colony count greater than 100,000 in 06/16/2018. B. Treated initially with IV ceftriaxone, which the organism was sensitive to and then switched to o ral Cipro, which the organism is sensitive to. C. Asymptomatic. Completed the additional 7-day course of oral Cipro as of 06/27/2018. 4. Anemia of chronic illness. A. Exacerbated by blood loss from recent surgery, requiring transfusion with 1 unit of packed red bl ood cells. B. Hemoglobin stable at 8.9 as of 07/16/2018. 5. Urinary retention. A. Required placement of Wisdom catheter on 06/19/2018. B. Patient voiding well without the use of a catheter as of 07/19/2018. 6. History of inability to place Wisdom catheter on 05/07/2018, requiring urologist, Dr. Styles to p lace the catheter. Complicated by hematuria, which is resolved. 7. Coronary artery disease. A. History of myocardial infarction complicated by cardiac arrest from ventricular tachycardia and p ulmonary edema, requiring placement of stents in the left anterior descending and Implantable cardiov erter defibrillator placement. B. In-stent restenosis in the left anterior descending, required bare metal stent placement by Dr. Arnaldo Baca, technical staff assistant on 05/09/2018. 8. Ischemic cardiomyopathy. A. Echocardiogram shows ejection fraction of 25% to 30%. B. No evidence of acute congestive heart failure as of 07/19/2018. 9. History of ventricular tachycardia. A. Status post dual-chamber implantable cardioverter defibrillator in 2013. 10. Chronic kidney disease, stage 4. A. GFR 25 as of 07/04/2018. B. GFR up to 25, her baseline as of 07/16/2018. 11. Hypertension. A. Controlled as of 07/18/2018. 12. Cigarette abuse. A. Patient has been off of the cigarettes since her surgery on 06/16/2018. 13. 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 A. Status post lumpectomy in 2006, no evidence of recurrence. 14. Generalized osteoarthritis. 15. Neuropathy of the lower extremities. 16. Constipation. A. Had not had bowel movement for several days, eventually moved with increase in her bowel program as on the evening of 07/11/2018. B. Controlled as of 07/15/2018. 17. Asthmatic bronchitis/chronic obstructive pulmonary disease with acute exacerbation, onset, 07/04. A. Resolved as of 07/19/2018. PLAN: Continue PT and OT. Plan for discharge tomorrow.
[2018-07-19] MEDS: Ezetimibe 10 MG TAB PO SCH (20:41)
[2018-07-19] MEDS: Atorvastatin Calcium 10 MG TAB PO SCH (20:42)
[2018-07-20] MEDS: Mometasone/Formoterol 60 PUFF AER INH SCH (06:13)
[2018-07-20 07:02] VITALS: BP 136/65; TEMP 97.2
[2018-07-20] MEDS: Furosemide 20 MG TAB PO SCH (08:41)
[2018-07-20] MEDS: Saccharomyces boulardii 250 MG CAP PO SCH (08:41)
[2018-07-20] MEDS: Senokot S 8.6-50 MG TAB PO SCH (08:41)
[2018-07-20] MEDS: Polyethylene Glycol 3350 17 GM Packet PO SCH (08:42)
[2018-07-20] MEDS: Carvedilol 12.5 MG TAB PO SCH (08:42)
[2018-07-20] MEDS: guaiFENesin ER 600 MG TAB PO SCH (08:42)
--- NOTE | 2018-07-20 14:05 | DIS ---
FINAL DIAGNOSES: 1. Generalized weakness and deconditioning and gait abnormality. A. Secondary to a failed hemiarthroplasty of the left hip requiring removal of hardware and conversi on to a total hip arthroplasty on 06/16/2018. B. Marked improvement where she is ambulating with a rolling walker up to 200 feet and transferring independently as of 07/20/2018. 2. 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 A. Status post removal of hardware and conversion to a total hip arthroplasty by Dr. Kushal Funes on 06/16/2018. B. Improved. Incision healing well. Recheck with Dr. Funes on 07/04/2018 showed she is doing well . Continued improvement as of 07/19/2018. 3. Urinary tract infection. A. Urine culture grew Enterobacter cloacae colony count greater than 100,000 in 06/16/2018. B. Treated initially with IV ceftriaxone, which the organism was sensitive to and then switched to o ral Cipro, which the organism is sensitive to. C. Asymptomatic. Completed the additional 7-day course of oral Cipro as of 06/27/2018. 4. Anemia of chronic illness. A. Exacerbated by blood loss from recent surgery, requiring transfusion with 1 unit of packed red bl ood cells. B. Hemoglobin stable at 8.9 as of 07/16/2018. 5. Urinary retention. A. Required placement of Wisdom catheter on 06/19/2018. B. Patient voiding well without the use of a catheter as of 07/19/2018. 6. History of inability to place Wisdom catheter on 05/07/2018, requiring urologist, Dr. Styles to p lace the catheter. Complicated by hematuria, which is resolved. 7. Coronary artery disease. A. History of myocardial infarction complicated by cardiac arrest from ventricular tachycardia and p ulmonary edema, requiring placement of stents in the left anterior descending and Implantable cardiov erter defibrillator placement. B. In-stent restenosis in the left anterior descending, required bare metal stent placement by Dr. Arnaldo Baca, needle molder on 05/09/2018. 8. Ischemic cardiomyopathy. A. Echocardiogram shows ejection fraction of 25% to 30%. B. No evidence of acute congestive heart failure as of 07/20/2018. 9. History of ventricular tachycardia. A. Status post dual-chamber implantable cardioverter defibrillator in 2013. 10. Chronic kidney disease, stage 4. A. GFR 25 as of 07/04/2018. B. GFR up to 25, her baseline as of 07/16/2018. 11. Hypertension. A. Controlled as of 07/18/2018. 12. Cigarette abuse. A. Patient has been off of the cigarettes since her surgery on 06/16/2018. 13. 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 A. Status post lumpectomy in 2006, no evidence of recurrence. 14. Generalized osteoarthritis. 15. Neuropathy of the lower extremities. 16. Constipation. A. Had not had bowel movement for several days, eventually moved with increase in her bowel program as on the evening of 07/11/2018. B. Controlled as of 07/15/2018. 17. Asthmatic bronchitis/chronic obstructive pulmonary disease with acute exacerbation, onset, 07/04. A. Resolved as of 07/20/2018. SUMMARY: The patient is an 87-year-old white female who lives at home with her and who is us ually independent with her ADLs. She does have a caregiver that comes in and assists her some. She has a history of hypertension, coronary artery disease for which stents have been placed in the LAD i n 2013. She has an ischemic cardiomyopathy with an ejection fraction 25-30% and has an AICD. The pat ient had a history of a fall resulting in a fracture of the left hip that occurred while visiting in [place]. This required an open reduction and internal fixation in 2013. Lately she had developed s evere pain in that left hip, particularly with any weightbearing. She was evaluated by orthopedic santacruz rgeon, Dr. Kushal Funes, and was found to have a failed prosthesis. The patient was hospitalized at [facility] and underwent removal of hardware and conversion to a total hip arthroplasty on 06/16/2018. Surgery went very well. Her hospital stay was complicated by difficulty with placement of a catheter and resultant urinary tract infection that was treated. She was left very weak. Also , she was anemic from blood loss from her surgery and required transfusion with 1 unit of blood. The patient was transferred to [facility] on 06/20/2018 due to the generalized weakness for physic al therapy and occupational therapy. HOSPITAL COURSE: The patient was very weak upon her admission. Physical Therapy worked with her and through her hospital stay, she made excellent progress and by the time of her discharge she was ambu lating up to 200 feet using a rolling walker, was able to transfer independently. OT had worked with her also to assist her with managing her ADLs. The patient completed a course of Cipro for a urinar y tract infection with Enterobacter cloacae that initially was treated at [facility] with IV ceftriaxone and then switched to oral Cipro that she completed at [facility]. She was anemi c from her recent surgery, but this stabilized. Her admission hemoglobin was 8.2 and her discharge h emoglobin on 07/16/2018 was 8.9 with a platelet count of 143,000. During her hospitalization, she rodriguez d significant problem with constipation that probably was a result of her pain medication. She requi red multiple stool softeners and laxatives with finely resolution of the constipation. As the patien t improved and her pain diminished she was able to stop her pain medication and when she got off of h er pain medication the constipation resolved and she did not require any assistance. During her hosp italization, she developed increased cough and congestion from an asthmatic bronchitis that was treat ed with antibiotics and steroids and nebulization treatments with very slow gradual resolution. By t he time of her discharge her lungs were clear. By 07/20/2018 the patient was doing well. Her lungs were clear. During her hospitalization, she had no evidence of any chest pain nor any problems with any acute congestive heart failure. Her asthmatic bronchitis had resolved. Her incision along the l eft hip has healed and the asthmatic bronchitis had resolved as well as the urinary tract infection. The patient was discharged home. Arrangements will be made for home health to assist with her care in in-home PT. DIET: Regular diet. No added salt. ACTIVITIES: Ambulate with the use of a walker. MEDICATIONS: Acetaminophen 325 mg 2 every 6 hours as needed for pain, aspirin 81 mg daily, atorvasta tin 80 mg daily, carvedilol 12.5 mg b.i.d., vitamin D3 500 units daily, Zetia 10 mg daily, furosemide 20 mg daily, isosorbide mononitrate 30 mg daily, MiraLax 17 grams, 8 ounces of water daily as needed , albuterol HFA 2 inhalations q.4h. p.r.n. wheezing. FOLLOW UP: Arrangements will be made for [facility] to see the patient and arrange for in- home PT. The patient will follow up with her orthopedic surgeon, Dr. Kushal Funes, appointment has [place] arranged. The patient will be seen by myself in follow up in 2 weeks with a CBC and basic metabo lic panel. CODE STATUS: Full code.
== END 2018-07-20 14:59 | disposition home health service (06) | DRG 948 ==
LOC: MADMS 15:58
PROVIDERS: ADMIT Family Medicine; ATTEND Family Medicine
DX: R53.1 Weakness (principal); N18.4 Chronic kidney disease, stage 4 (severe); N39.0 Urinary tract infection, site not specified; J44.1 Chronic obstructive pulmonary disease with (acute) exacerbation; J44.0 Chronic obstructive pulmonary disease with (acute) lower respiratory infection; D62 Acute posthemorrhagic anemia; I25.10 Atherosclerotic heart disease of native coronary artery without angina pectoris; I25.5 Ischemic cardiomyopathy; Z87.81 Personal history of (healed) traumatic fracture; Z96.642 Presence of left artificial hip joint; Z95.810 Presence of automatic (implantable) cardiac defibrillator; I12.9 Hypertensive chronic kidney disease with stage 1 through stage 4 chronic kidney disease, or unspecified chronic kidney disease; E78.00 Pure hypercholesterolemia, unspecified; I08.0 Rheumatic disorders of both mitral and aortic valves; I25.2 Old myocardial infarction; D63.1 Anemia in chronic kidney disease; M15.9 Polyosteoarthritis, unspecified; E66.01 Morbid (severe) obesity due to excess calories; Z85.3 Personal history of malignant neoplasm of breast; F17.210 Nicotine dependence, cigarettes, uncomplicated; R26.9 Unspecified abnormalities of gait and mobility; B96.89 Other specified bacterial agents as the cause of diseases classified elsewhere; G62.9 Polyneuropathy, unspecified; G89.29 Other chronic pain; K59.03 Drug induced constipation; T40.605A Adverse effect of unspecified narcotics, initial encounter; J20.9 Acute bronchitis, unspecified; R33.9 Retention of urine, unspecified
CPT/HCPCS: 36415; 71046; 80048; 80053; 81003; 81015; 85025; G8978-GP-CL; G8979-GP-CJ; G8987-GO-CK; G8988-GO-CI; J1650; J7506; J7512; J7620; Q0162

== ENCOUNTER 2018-08-02 14:43 | Outpatient (CLI) | payer MEDICARE, BC, OTHER ==
[2018-08-02 14:54] LABS: #Basophils 0.1 thou/uL (0.0-0.2); #Eosinphils 0.4 thou/uL (0.0-0.7); #Lymphocytes 1.3 thou/uL (1.20-3.40); #Monocytes 0.5 thou/uL (0.11-0.59); #Neutrophils 3.1 thou/uL (1.40-6.50); %Basophils 1.4 % (0.0-1.0); %Eosinophils 7.7 % (0.0-10.0); %Lymphocytes 24.5 % (21.0-51.0); %Monocytes 9.4 % (0.0-10.0); %Neutrophils 57.1 % (42.0-75.0); Hemoglobin 9.3 g/dL (12.0-16.0); Mean Corpuscular HGB CONC 33.3 g/dL (32.0-36.0); Mean Corpuscular Hemoglobin 30.4 pg (27.0-31.0); Mean Corpuscular Volume 91.2 fL (78.0-98.0); Mean Platelet Volume 11.3 fL (7.4-10.4); Platelet Count 157 thou/uL (130-400); RBC Distribution Width 12.5 % (11.5-14.5); Red Blood Cell (RBC) Count 3.06 mill/uL (4.20-5.40); White Blood Cell (WBC) Count 5.3 thou/uL (4.8-10.8)
[2018-08-02 15:05] LABS: Anion Gap 16 mmol/L (10-20); BUN (Urea Nitrogen) 29 mg/dL (9.8-20.1); Calc. Creatinine Clearance 0 mL/min (70-130); Calcium 8.5 mg/dL (7.8-10.44); Carbon Dioxide 18 mmol/L (23-31); Chloride 111 mmol/L (98-107); Estimated GFR-MDRD 29; Glucose 108 mg/dL (83-110); Potassium 4.5 mmol/L (3.5-5.1); Sodium 140 mmol/L (136-145)
== END 2018-08-02 14:44 | disposition home or self-care (01) ==
LOC: MADLABBHPM 14:43
PROVIDERS: ATTEND Family Medicine
DX: I10 Essential (primary) hypertension (principal); D64.9 Anemia, unspecified
CPT/HCPCS: 80048; 85025

== ENCOUNTER 2021-05-15 11:26 | Outpatient (CLI) | payer MEDICARE, BC, OTHER ==
[2021-05-15 12:29] LABS: #Eosinphils 0.3 thou/uL (0.0-0.7); #Lymphocytes 1.1 thou/uL (1.20-3.40); #Monocytes 0.7 thou/uL (0.11-0.59); #Neutrophils 3.8 thou/uL (1.40-6.50); %Basophils 0.8 % (0.0-1.0); %Eosinophils 4.8 % (0.0-10.0); %Monocytes 11.6 % (0.0-10.0); %Neutrophils 64.9 % (42.0-75.0); Hemoglobin 10.8 g/dL (12.0-16.0); Mean Corpuscular HGB CONC 31.2 g/dL (32.0-36.0); Mean Corpuscular Hemoglobin 30.2 pg (27.0-31.0); Mean Corpuscular Volume 96.9 fL (78.0-98.0); Platelet Count 111 thou/uL (130-400); RBC Distribution Width 12.9 % (11.5-14.5); Red Blood Cell (RBC) Count 3.58 mill/uL (4.20-5.40); White Blood Cell (WBC) Count 5.8 thou/uL (4.8-10.8)
[2021-05-15 12:32] LABS: ALT (SGPT) 13 U/L (8-55); AST (SGOT) 18 U/L (5-34); Alkaline Phosphatase 65 U/L (40-110); Anion Gap 17 mmol/L (10-20); BUN (Urea Nitrogen) 49 mg/dL (9.8-20.1); Bilirubin, Total 0.8 mg/dL (0.2-1.2); Calc. Creatinine Clearance 0 mL/min (70-130); Calcium 8.4 mg/dL (7.8-10.44); Carbon Dioxide 21 mmol/L (23-31); Cardiac Risk 2.4 (Less than 4.5); Chloride 112 mmol/L (98-107); Cholesterol 102 mg/dl (< 200 Desired); Globulin 2.8 g/dL (2.4-3.5); Glucose 99 mg/dL (83-110); HDL Cholesterol 43 mg/dL (>60 Neg Risk); LDL Cholesterol, Calculated 46 mg/dL; Magnesium 2.2 mg/dL (1.6-2.6); Potassium 4.5 mmol/L (3.5-5.1); Protein, Total 6.8 g/dL (5.8-8.1); Sodium 145 mmol/L (136-145); Triglycerides 63 mg/dL (Less than 150)
[2021-05-15 12:53] LABS: Anisocytosis SLIGHT = 6-15 cells (100X) (0-5/hpf)
[2021-05-15 12:59] LABS: Platelet Morphology Comment Appears Adequate
== END 2021-05-15 11:27 | disposition home or self-care (01) ==
LOC: MADLAB 11:26
PROVIDERS: ATTEND Family Medicine
DX: I50.20 Unspecified systolic (congestive) heart failure (principal); E78.00 Pure hypercholesterolemia, unspecified
CPT/HCPCS: 36415; 80053; 80061; 83735; 83880; 85025